=== PATIENT | male | born 1960 | race Hispanic/Latino ===

== ENCOUNTER 2017-02-22 15:29 | Inpatient (IN) | payer MEDICARE, MEDICAID ==
[2017-02-22 15:30] VITALS: BMI 24.1
--- NOTE | 2017-02-22 15:44 | C.PDOC ---
History Of Present Illness 56M presents via EMS w overdose. per ems initial call was for "chest pain" however the pt reports taking 8 xanax around 10am today. he admits that this was a suicide attempt. further hx if difficult due to mental status and speech delay. Time Seen by Provider: 02/22/17 15:41 Past Medical History Vital Signs: Last Vital Signs Temp 97.7 F 02/23/17 15:20 Pulse 97 H 02/23/17 15:20 Resp 20 02/23/17 15:20 BP 154/99 H 02/23/17 15:20 Pulse Ox 97 02/23/17 15:20 - Medical History PMH: Kidney Stones, Chronic Kidney Disease, Seizures Denies: HIV Surgical History: Appendectomy, Tonsillectomy - [facility] Procedures COMMUNICATIVE/COGNITIVE INTEGRATION SKILLS TREATMENT (06/16/16) EXCISION OF DUODENUM, ENDO, DIAGN (12/20/16) EXCISION OF LOWER ESOPHAGUS, ENDO, DIAGN (12/20/16) EXCISION OF STOMACH, ENDO, DIAGN (12/20/16) FLUOROSCOPY OF SUPERIOR VENA CAVA, GUIDANCE (12/20/16) GAIT TRAINING/AMBULAT TREATMENT USING ASSIST EQUIPMENT (11/10/16) HOME MANAGEMENT TREATMENT USING ASSIST EQUIPMENT (06/16/16) INSERTION OF INFUSION DEV INTO SUP VENA CAVA, PERC APPROACH (12/20/16) LINEAR REP LID LACER (05/07/15) MANUAL THERAPY TECHNIQUES TREATMENT OF MUSCULOSK LOW BACK/LE (06/16/16) THERAPEUTIC EXERCISE TREATMENT OF MUSCULOSK LOW BACK/LE (06/16/16) ULTRASONOGRAPHY OF SUPERIOR VENA CAVA, GUIDANCE (12/20/16) Family History: States: Unknown Family Hx - Social History Hx Alcohol Use: No Hx Substance Use: No - Immunization History Hx Tetanus Toxoid Vaccination: Yes (a few months ago) Review Of Systems Review Of Systems: ROS cannot be obtained secondary to pt's inabilty to answer questions. Physical Exam - Physical Exam Appears: Unkempt Skin: Diaphoretic Head: Atraumatic Eye(s): bilateral: PERRL Oral Mucosa: Moist Tongue: No Swelling Teeth: Caries Neck: Normal ROM, Supple Cardiovascular: Rhythm Regular Respiratory: No Decreased Breath Sounds, No Accessory Muscle Use, No Rales, No Rhonchi Gastrointestinal/Abdominal: Soft Extremity: Normal ROM Pulses: Left Radial: Normal, Right Radial: Normal Neurological/Psych: Other (lethargic, slurred speech, follows commands) ED Course And Treatment - Laboratory Results Result Diagrams: 02/23/17 08:37 02/23/17 08:37 Disposition - Disposition Disposition: HOSPITALIZED Disposition Time: 18:17 Condition: STABLE - Clinical Impression Clinical Impression: Benzodiazepine overdose, Suicide attempt
[2017-02-22] MEDS ORDERED: Sodium Chloride 0.9% 1,000 ML IV ONE (15:52)
--- NOTE | 2017-02-22 16:24 | RAD ---
HISTORY: Chest pain portable supine study 16:00 COMPARISON: No prior. FINDINGS: LUNGS: No active pulmonary disease. PLEURA: No significant pleural effusion identified, no pneumothorax apparent. CARDIOVASCULAR: No radiographic findings to suggest acute or significant cardiovascular disease. OSSEOUS STRUCTURES: No significant abnormalities. VISUALIZED UPPER ABDOMEN: Normal. OTHER FINDINGS: None. IMPRESSION: No active disease.
[2017-02-22 16:58] LABS: CHLORIDE 103 mmol/L (98-107)
[2017-02-22 16:59] LABS: POTASSIUM 3.9 mmol/L (3.6-5.2); SODIUM 139 mmol/L (132-148)
[2017-02-22 17:01] LABS: ALB/GLOB RATIO 1.2 (1.0-2.1); AST/SGOT 25 U/L (17-59); CARBON DIOXIDE 25 mmol/L (22-30); GFR AFRICAN-AMERICAN > 60; TOTAL PROTEIN 6.7 g/dL (6.3-8.3)
[2017-02-22 17:02] LABS: ALCOHOL SERUM 18 mg/dl (0-10); ALKALINE PHOSPHATASE 63 U/L (38-126); ALT/SGPT 17 U/L (21-72); BLOOD UREA NITROGEN 7 mg/dL (9-20); GLUCOSE,RANDOM 86 mg/dL (75-110)
[2017-02-22 17:05] LABS: BASO % 0.6 % (0.0-2.0); EOS % 0.9 % (0.0-4.0); HEMATOCRIT 39.1 % (35.0-51.0); LYMPH # 1.1 K/uL (1.0-4.3); MEAN CELL VOLUME 87.8 fL (80.0-94.0); MEAN CORPUSCULAR HEMOGLOBIN 28.5 pg (27.0-31.0); MEAN CORPUSCULAR HGB CONC 32.4 g/dL (33.0-37.0); MEAN PLATELET VOLUME 8.1 fL (7.2-11.7); MONO # 0.3 K/uL (0.0-0.8); WHITE BLOOD COUNT 3.9 K/uL (4.8-10.8)
[2017-02-22 17:37] LABS: RBC URINE 4 /hpf (0-3); URINE BACTERIA RARE (<OCC); URINE BILIRUBIN NEGATIVE (NEGATIVE); URINE BLOOD 1+ (NEGATIVE); URINE COLOR Yellow (YELLOW); URINE GLUCOSE (UA) NORMAL (Normal); URINE KETONE NEGATIVE (NEGATIVE); URINE LEUKOCYTE ESTERASE NEG Leu/uL (Negative); URINE PROTEIN NEGATIVE (NEGATIVE); URINE UROBILINOGEN NORMAL mg/dL (0.2-1.0); WBC URINE < 1 /hpf (0-5)
--- NOTE | 2017-02-22 19:32 | CP.PCM.HP ---
Addendum entered and electronically signed by Chadwick Thomson DO 02/25/17 06:53: Addendum to overdose plan: Add toxic encephalopathy diagnosis in setting of AMS secondary to benzo, opiate , alcohol use Original Note: <AmeenaNhan - Last Filed: 02/22/17 21:36> History of Present Illness - History of Present Illness History of Present Illness: CC: Overdose and Suicide attempt 56M with PMH significant for cerebral palsy and seizures who was brought in by EMS for overdose and Suicide attempt. As per EMS, the initial call was for chest pain. When they arrived, patient was altered. EMS also reported that he took 8 xanax around 10am today and that patient admitted that this was a suicide attempt. ROS unobtainable due to mental status. PMH: cerebral palsy, seizures, GERD, polysubstance abuse Meds: As per EMR Allergy: NKDA PSH: appendectomy Hosp: [facility] [place] in last year for dysphagia and drug abuse Social: As per EMR, lives with nephew, uses cane/walker, history of drug/ETOH abuse Present on Admission - Present on Admission Any Indicators Present on Admission: No History of DVT/PE: No History of Uncontrolled Diabetes: No Urinary Catheter: No Decubitus Ulcer Present: No Review of Systems - Review of Systems Systems not reviewed;Unavailable: Altered Mental Status Past Patient History - Infectious Disease Hx of Infectious Diseases: None - Past Medical History & Family History Past Medical History?: Yes - Past Social History Smoking Status: Former Smoker - CARDIAC Hx Cardiac Disorders: No - PULMONARY Hx Respiratory Disorders: No - NEUROLOGICAL Hx Seizures: Yes - HEENT Hx HEENT Problems: No - RENAL Hx Chronic Kidney Disease: Yes Hx Kidney Stones: Yes - ENDOCRINE/METABOLIC Hx Endocrine Disorders: No - HEMATOLOGICAL/ONCOLOGICAL Hx Human Immunodeficiency Virus (HIV): No - INTEGUMENTARY Hx Dermatological Problems: No - MUSCULOSKELETAL/RHEUMATOLOGICAL Hx Falls: Yes Other/Comment: cerebral palsy - GASTROINTESTINAL Hx Gastrointestinal Disorders: No - GENITOURINARY/GYNECOLOGICAL Hx Genitourinary Disorders: No - PSYCHIATRIC Hx Substance Use: No - SURGICAL HISTORY Hx Appendectomy: Yes Hx Tonsillectomy: Yes - ANESTHESIA Hx Anesthesia: Yes Hx Anesthesia Reactions: No Hx Malignant Hyperthermia: No Meds Allergies/Adverse Reactions: Allergies Allergy/AdvReac Type Severity Reaction Status Date / Time No Known Allergies Allergy Verified 02/22/17 15:46 Physical Exam - Constitutional Appears: Toxic, Confused, Chronically Ill - Head Exam Head Exam: ATRAUMATIC, NORMOCEPHALIC - Eye Exam Eye Exam: EOMI Pupil Exam: PERRL Additional comments: arcus senalis - ENT Exam ENT Exam: Mucous Membranes Dry - Neck Exam Neck exam: Positive for: Normal Inspection - Respiratory Exam Respiratory Exam: Clear to Auscultation Bilateral, NORMAL BREATHING PATTERN. absent: Accessory Muscle Use, Respiratory Distress - Cardiovascular Exam Cardiovascular Exam: REGULAR RHYTHM, +S1, +S2 - GI/Abdominal Exam GI & Abdominal Exam: Normal Bowel Sounds, Soft. absent: Distended, Firm, Rigid - Extremities Exam Extremities exam: Positive for: pedal pulses present. Negative for: pedal edema Additional comments: contractures on upper and lower extremities bilaterally fluctuant mass on dorsum of left hand - Back Exam Back exam: absent: CVA tenderness (L), CVA tenderness (R) - Neurological Exam Neurological exam: Altered - Psychiatric Exam Psychiatric exam: Flat Affect - Skin Skin Exam: Dry, Warm Additional comments: bilateral pigmentation discoloration on knees Results - Vital Signs Recent Vital Signs: Last Vital Signs Temp 97.3 F L 02/22/17 19:10 Pulse 64 02/22/17 19:10 Resp 16 02/22/17 19:10 BP 121/88 02/22/17 19:10 Pulse Ox 100 02/22/17 19:10 - Labs Result Diagrams: 02/22/17 16:41 02/22/17 16:41 Assessment & Plan - Assessment and Plan (Free Text) Plan: 1. Overdose Telemetry D5 1/2 NS with 20 mEq K+ 125 cc/hr Romazicon 0.2 mg IVP ONCE Narcan 0.4 IVP ONCE Thiamine 100 mg IVPB daily Psych consult, Dr. Smith, help appreciated UDS positive for benzo, opiates, Alcohol Seizure precautions Aspiration precautions Fall risk protocol 2. Suicide attempt Psych consult, Dr. Smith, help appreciated 1:1 observation 3. Seizure disorder Phenytoin 100 mg IVP Q8H Seizure precautions 4. Prophylactic measures Protonix 40 mg IVP daily Zofran 4 mg IVP Q6H PRN <Reji Anthony P - Last Filed: 02/26/17 23:31> Results - Vital Signs Recent Vital Signs: Last Vital Signs Temp 97.2 F L 02/26/17 15:12 Pulse 109 H 02/26/17 15:12 Resp 20 02/26/17 15:12 BP 144/95 H 02/26/17 15:12 Pulse Ox 97 02/26/17 15:12 - Labs Result Diagrams: 02/26/17 07:11 02/26/17 07:11 Labs: Laboratory Results - last 24 hr 02/26/17 02/26/17 02/26/17 06:33 07:11 07:11 WBC 7.6 RBC 5.39 Hgb 15.7 Hct 47.0 MCV 87.3 MCH 29.2 MCHC 33.5 RDW 14.2 Plt Count 301 MPV 8.0 Neut % (Auto) 70.8 Lymph % (Auto) 21.5 [place] % (Auto) 6.5 Eos % (Auto) 0.5 Baso % (Auto) 0.7 Neut # 5.4 Lymph # 1.6 [place] # 0.5 Eos # 0.0 Baso # 0.1 Sodium 139 Potassium 3.7 Chloride 102 Carbon Dioxide 23 Anion Gap 17 BUN 12 Creatinine 0.6 L Est GFR ( Amer) > 60 Est GFR (Non-Af Amer) > 60 POC Glucose (mg/dL) 94 Random Glucose 112 H Calcium 8.9 Phosphorus 4.3 Magnesium 2.4 H Total Bilirubin 1.2 AST 21 ALT 15 L D Alkaline Phosphatase 91 Total Protein 7.7 Albumin 4.3 Globulin 3.4 Albumin/Globulin Ratio 1.3 02/26/17 11:38 WBC RBC Hgb Hct MCV MCH MCHC RDW Plt Count MPV Neut % (Auto) Lymph % (Auto) [place] % (Auto) Eos % (Auto) Baso % (Auto) Neut # Lymph # [place] # Eos # Baso # Sodium Potassium Chloride Carbon Dioxide Anion Gap BUN Creatinine Est GFR ( Amer) Est GFR (Non-Af Amer) POC Glucose (mg/dL) 119 H Random Glucose Calcium Phosphorus Magnesium Total Bilirubin AST ALT Alkaline Phosphatase Total Protein Albumin Globulin Albumin/Globulin Ratio Attending/Attestation - Attestation I have personally seen and examined this patient.: Yes I have fully participated in the care of the patient.: Yes I have reviewed all pertinent clinical information: Yes
[2017-02-22] MEDS ORDERED: Naloxone 0.4 mg/ml Inj (Adult) IVP ONE (20:48)
[2017-02-22] MEDS ORDERED: Flumazenil 0.1 mg/ml Inj (5ml) IVP STA (20:49)
[2017-02-22 21:11] LABS: ABG ALLEN TEST N; ARTERIAL BLOOD HGB O2 SAT 95.6 % (95.0-98.0); DRAW SITE RB; HHB 1.2 % (0.0-5.0); METHEMOGLOBIN 1.2 % (0.0-3.0)
[2017-02-22] MEDS ORDERED: Thiamine 100 mg/ml Inj IV ONE (21:15)
[2017-02-22] MEDS: Potassium Ch 20mEq in D5-1/2NS 1,000 ML IV SCH (22:59)
[2017-02-22] MEDS: Phenytoin 100 mg/2 ml Inj IVP SCH (23:15)
[2017-02-23] MEDS: Potassium Ch 20mEq in D5-1/2NS 1,000 ML IV SCH ×3 (05:30→19:10)
[2017-02-23] MEDS: Phenytoin 100 mg/2 ml Inj IVP SCH ×3 (06:19→21:43)
--- NOTE | 2017-02-23 07:47 | CT ---
PROCEDURE: CT HEAD WITHOUT CONTRAST. HISTORY: Altered mental status COMPARISON: None available. TECHNIQUE: Axial computed tomography images were obtained through the head/brain without intravenous contrast. Radiation dose: Total exam DLP = 885 mGy-cm. This CT exam was performed using one or more of the following dose reduction techniques: Automated exposure control, adjustment of the mA and/or kV according to patient size, and/or use of iterative reconstruction technique. FINDINGS: HEMORRHAGE: No intracranial hemorrhage. BRAIN: Mild diffuse cerebral atrophy present, consistent with the patient's age. Scattered focal lucencies in the subcortical and periventricular white matter suggestive for chronic microvascular ischemic change. VENTRICLES: Unremarkable. No hydrocephalus. CALVARIUM: Unremarkable. PARANASAL SINUSES: Unremarkable as visualized. No significant inflammatory changes. MASTOID AIR CELLS: Unremarkable as visualized. No inflammatory changes. OTHER FINDINGS: Small hypoechoic/cystic mass seen within the anterior left hemimaxilla on series 2, image 4 measuring 2.2 x 2.2 centimeters. This is of uncertain clinical etiology. Clinical correlation and or correlation with facial CT may be helpful if clinically indicated. IMPRESSION: Age appropriate volume loss. Chronic microvascular ischemic change. Rounded 2.2 centimeter cystic/ low-attenuation lesion in the anterior left hemimaxilla. This is of uncertain clinical etiology and may represent a periodontal cyst versus periodontal abscess versus additional etiology. Correlation with facial bone CT may be helpful if clinically indicated. If focal neurologic deficit persists, consider MRI. These findings were preliminarily reported at 7:12 p.m. on 02/22/[address] Pradip De Oliveira from [email or web address].
[2017-02-23 08:53] LABS: INR 1.1
[2017-02-23 08:59] LABS: CHLORIDE 105 mmol/L (98-107); SODIUM 139 mmol/L (132-148)
[2017-02-23 09:00] LABS: POTASSIUM 3.7 mmol/L (3.6-5.2)
[2017-02-23 09:02] LABS: ALB/GLOB RATIO 1.3 (1.0-2.1); ALKALINE PHOSPHATASE 76 U/L (38-126); AST/SGOT 20 U/L (17-59); BILIRUBIN,TOTAL 1.5 mg/dL (0.2-1.3); BLOOD UREA NITROGEN 5 mg/dL (9-20); CARBON DIOXIDE 25 mmol/L (22-30); GFR AFRICAN-AMERICAN > 60; TOTAL PROTEIN 6.7 g/dL (6.3-8.3)
[2017-02-23 09:03] LABS: ALT/SGPT 15 U/L (21-72); CALCIUM 8.6 mg/dl (8.6-10.4); GLUCOSE,RANDOM 125 mg/dL (75-110)
[2017-02-23 09:04] LABS: BASO % 0.1 % (0.0-2.0); EOS % 0.1 % (0.0-4.0); HEMATOCRIT 40.5 % (35.0-51.0); LYMPH # 0.9 K/uL (1.0-4.3); LYMPH % 10.6 % (20.0-40.0); MEAN CELL VOLUME 87.1 fL (80.0-94.0); MEAN CORPUSCULAR HEMOGLOBIN 29.8 pg (27.0-31.0); MEAN CORPUSCULAR HGB CONC 34.2 g/dL (33.0-37.0); MEAN PLATELET VOLUME 8.1 fL (7.2-11.7); MONO # 0.3 K/uL (0.0-0.8); MONO % 4.2 % (0.0-10.0); RED CELL DISTRIBUTION WIDTH 14.3 % (11.5-14.5)
[2017-02-23 09:14] LABS: WHITE BLOOD COUNT 8.2 K/uL (4.8-10.8)
[2017-02-23] MEDS: Thiamine 100 mg/ml Inj IV SCH (10:10)
--- NOTE | 2017-02-23 11:57 | PCM.PSYCH ---
Initial Psychiatric Evaluation - Initial Psychiatric Evaluation Type of Admission: Voluntary Legal Status: Capacity History of Present Illness and Precipitating Events: Came to evaluate the patient. Patient remained very drowsy and sedated. Will come tomorrow to reevaluate him. Current Medications: Active Medications Generic Name Dose Route Start Last Admin Trade Name Freq PRN Reason Stop Dose Admin Potassium Chloride/Dextrose/Sod Cl 1,000 mls @ 125 mls/hr 02/22/17 21:00 05:30 Potassium Chl 20 Meq In D5-1/2ns IV Not Given .Q8H ANDI Ondansetron HCl 4 mg 02/22/17 22:00 Zofran Inj IVP Q6 PRN Nausea/Vomiting Pantoprazole Sodium 40 mg 02/23/17 10:00 02/23/17 10:08 Protonix Inj IVP 40 mg DAILY ANDI Administration Phenytoin 100 mg 02/22/17 21:30 02/23/17 06:19 Dilantin IVP 100 mg Q8H ANDI Administration Thiamine HCl 100 mg 02/23/17 10:00 02/23/17 10:10 Vitamin B1 Inj IV 100 mg DAILY ANDI Administration Past Psychiatric History - Past Psychiatric History Pertinent Medical Hx (Current Medical&Sleep Prob, Allergies): Allergies Allergy/AdvReac Type Severity Reaction Status Date / Time No Known Allergies Allergy Verified 02/22/17 15:46 Alprazolam [Xanax] 0.25 mg PO BID 12/19/16 Gabapentin [Neurontin] 100 mg PO TID 12/19/16 Phenytoin, Extended [Dilantin] 100 mg PO TID 12/19/16 Pantoprazole [Protonix] 40 mg PO DAILY #30 ect 12/27/16
--- NOTE | 2017-02-23 12:44 | CP.PCM.PN ---
<Kannan Crane - Last Filed: 02/23/17 12:46> Subjective - Date & Time of Evaluation Date of Evaluation: 02/23/17 Time of Evaluation: 12:45 - Subjective Subjective: Med progress note. Attending: Dr. Mari Pt seen and examined at bedside. No acute distress. No events overnight. Pt still somewhat obtunded. Will increase fluids, ROS unable to be obtained. Psych workup in progress. Objective - Vital Signs/Intake and Output Vital Signs (last 24 hours): Temp Pulse Resp BP Pulse Ox 98.2 F 90 20 151/80 H 96 02/23/17 07:30 02/23/17 07:30 02/23/17 07:30 02/23/17 07:30 02/23/17 07:30 Intake and Output: 02/23/17 02/23/17 06:59 18:59 Intake Total 1000 1000 Output Total 350 300 Balance 650 700 - Medications Medications: Current Medications Ondansetron HCl (Zofran Inj) 4 mg IVP Q6 PRN PRN Reason: Nausea/Vomiting Pantoprazole Sodium (Protonix Inj) 40 mg IVP DAILY [facility] Last Admin: 02/23/17 10:08 Dose: 40 mg Phenytoin (Dilantin) 100 mg IVP Q8H [facility] Last Admin: 02/23/17 06:19 Dose: 100 mg Thiamine HCl (Vitamin B1 Inj) 100 mg IV DAILY [facility] Last Admin: 02/23/17 10:10 Dose: 100 mg - Labs Labs: 02/23/17 08:37 02/23/17 08:37 PT 12.6 SECONDS (9.7-12.2) H 02/23/17 08:37 INR 1.1 02/23/17 08:37 APTT 29 SECONDS (21-34) 02/23/17 08:37 - Constitutional Appears: Non-toxic, No Acute Distress - Head Exam Head Exam: ATRAUMATIC, NORMAL INSPECTION, NORMOCEPHALIC Additional comments: Obtunded - Eye Exam Eye Exam: EOMI - ENT Exam ENT Exam: Mucous Membranes Moist - Neck Exam Neck Exam: Full ROM, Normal Inspection - Respiratory Exam Respiratory Exam: NORMAL BREATHING PATTERN. absent: Respiratory Distress - Cardiovascular Exam Cardiovascular Exam: +S1, +S2 - GI/Abdominal Exam GI & Abdominal Exam: Soft, Normal Bowel Sounds. absent: Tenderness - Extremities Exam Extremities Exam: Full ROM, Normal Inspection - Back Exam Back Exam: NORMAL INSPECTION - Neurological Exam Neurological Exam: Altered - Psychiatric Exam Additional comments: Unable to assess - Skin Skin Exam: Dry, Intact, Normal Color, Warm Assessment and Plan - Assessment and Plan (Free Text) Assessment: This is a 56 yo male with past medical hx of drug abuse, cerebral palsy, seizures, GERD presenting with 1. Overdose Telemetry D5 1/2 NS with 20 mEq K+ 150 cc/hr flumazenil 0.2 mg IVP ONCE Narcan 0.4 IVP ONCE Thiamine 100 mg IVPB daily Psych consult, Dr. Smith, help appreciated UDS positive for benzo, opiates, Alcohol Seizure precautions Aspiration precautions Fall risk protocol 2. Suicide attempt Psych consult, Dr. Smith, help appreciated 1:1 observation 3. Seizure disorder Phenytoin 100 mg IVP Q8H Seizure precautions 4. Prophylactic measures Protonix 40 mg IVP daily Zofran 4 mg IVP Q6H PRN discussed with Dr. Mari <Steven Mari - Last Filed: 02/23/17 16:19> Objective - Vital Signs/Intake and Output Vital Signs (last 24 hours): Temp Pulse Resp BP Pulse Ox 97.7 F 97 H 20 154/99 H 97 02/23/17 15:20 02/23/17 15:20 02/23/17 15:20 02/23/17 15:20 02/23/17 15:20 Intake and Output: 02/23/17 02/23/17 06:59 18:59 Intake Total 1000 1000 Output Total 350 300 Balance 650 700 - Medications Medications: Current Medications Potassium Chloride/Dextrose/Sod Cl (Potassium Chl 20 Meq In D5-1/2ns) 1,000 mls @ 150 mls/hr IV .Q6H40M [facility] Last Admin: 02/23/17 14:08 Dose: 150 mls/hr Ondansetron HCl (Zofran Inj) 4 mg IVP Q6 PRN PRN Reason: Nausea/Vomiting Pantoprazole Sodium (Protonix Inj) 40 mg IVP DAILY [facility] Last Admin: 02/23/17 10:08 Dose: 40 mg Phenytoin (Dilantin) 100 mg IVP Q8H [facility] Last Admin: 02/23/17 14:33 Dose: 100 mg Thiamine HCl (Vitamin B1 Inj) 100 mg IV DAILY [facility] Last Admin: 02/23/17 10:10 Dose: 100 mg - Labs Labs: 02/23/17 08:37 02/23/17 08:37 PT 12.6 SECONDS (9.7-12.2) H 02/23/17 08:37 INR 1.1 02/23/17 08:37 APTT 29 SECONDS (21-34) 02/23/17 08:37 Attending/Attestation - Attestation I have personally seen and examined this patient.: Yes I have fully participated in the care of the patient.: Yes I have reviewed all pertinent clinical information, including history, physical exam and plan: Yes Notes (Text): 02/23/17 16:18 Medical attending: Patient was seen and examined by me, agrees the above note by medical record librarians teacher. The patient was awake, and he did look to me when calling his name. His speech is mostly mumbled and difficult to understand. He still looks dry on exam and so at this time regarding continue with intravenous fluids. If there is no noticeable improvement in his mental status were can consider getting further imaging of the brain. He's urine drug screen came back positive for several things as noted above Thank you very much, Steven Mari
--- NOTE | 2017-02-23 17:18 | CT ---
Indication: Pain Noncontrast CT of the left hip Comparison: None available Technique: Noncontrast axial images of the left hip. Sagittal coronal reformatted images were generated and reviewed. This CT exam was performed using 1 or more of the falling dose reduction techniques: Automated exposure control, adjustment of the MAA and/or kV according to patient size, and/or use of iterative reconstruction technique. Total exam DLP: 237.36 Findings: No acute fracture. No dislocation. Well corticated ossific density noted superior to the left humeral head likely related to the acetabulum and degenerative change. The left sacroiliac joint appears unremarkable. Degenerative changes involving the limited visualization of the lower lumbar spine. 7 mm anterolisthesis of L5 on S1. Bilateral L5 spondylolysis. Soft tissues appear unremarkable. No evidence of radiopaque foreign body. Limited visualization of the intrapelvic structures: Cooney catheter. Air within the urinary bladder likely related to instrumentation. Impression: No acute hip fracture or dislocation identified. Degenerative changes. Bilateral L5 spondylolysis. Cooney catheter within the urinary bladder which contains air, likely secondary to instrumentation.
[2017-02-24] MEDS: Potassium Ch 20mEq in D5-1/2NS 1,000 ML IV SCH ×3 (02:33→10:16)
[2017-02-24] MEDS: Phenytoin 100 mg/2 ml Inj IVP SCH (04:48)
[2017-02-24] MEDS: Thiamine 100 mg/ml Inj IV SCH (10:23)
--- NOTE | 2017-02-24 11:30 | CP.PCM.PN ---
Subjective - Date & Time of Evaluation Date of Evaluation: 02/24/17 Time of Evaluation: 11:30 - Subjective Subjective: Med progress note. Attending: Dr. Mari Pt seen and examined at bedside. No acute distress. No events overnight. Pt pending swallow eval and psych eval. May need [place] be [place] [facility] [place] Denies fevers, chills, chest pain, sob. Objective - Vital Signs/Intake and Output Vital Signs (last 24 hours): Temp Pulse Resp BP Pulse Ox 97.7 F 89 20 155/100 H 99 02/24/17 08:19 02/24/17 08:19 02/24/17 08:19 02/24/17 08:19 02/24/17 08:19 - Medications Medications: Current Medications Clonidine HCl (Catapres) 0.1 mg PO Q8H [facility] Last Admin: 02/24/17 10:31 Dose: 0.1 mg Potassium Chloride/Dextrose/Sod Cl (Potassium Chl 20 Meq In D5-1/2ns) 1,000 mls @ 150 mls/hr IV .Q6H40M [facility] Last Admin: 02/24/17 10:16 Dose: 150 mls/hr Phenytoin 100 mg/ Sodium (Chloride) 52 mls @ 104 mls/hr IVPB Q8 ANDI Ondansetron HCl (Zofran Inj) 4 mg IVP Q6 PRN PRN Reason: Nausea/Vomiting Pantoprazole Sodium (Protonix Inj) 40 mg IVP DAILY [facility] Last Admin: 02/24/17 10:18 Dose: 40 mg Thiamine HCl (Vitamin B1 Inj) 100 mg IV DAILY [facility] Last Admin: 02/24/17 10:23 Dose: 100 mg - Labs Labs: PT 12.6 SECONDS (9.7-12.2) H 02/23/17 08:37 INR 1.1 02/23/17 08:37 APTT 29 SECONDS (21-34) 02/23/17 08:37 - Constitutional Appears: Non-toxic, No Acute Distress, Unkempt - Head Exam Head Exam: ATRAUMATIC, NORMAL INSPECTION, NORMOCEPHALIC - Eye Exam Eye Exam: EOMI - ENT Exam ENT Exam: Mucous Membranes Dry - Neck Exam Neck Exam: Full ROM, Normal Inspection - Respiratory Exam Respiratory Exam: NORMAL BREATHING PATTERN. absent: Respiratory Distress - Cardiovascular Exam Cardiovascular Exam: REGULAR RHYTHM, +S1, +S2 - GI/Abdominal Exam GI & Abdominal Exam: Soft, Normal Bowel Sounds. absent: Tenderness - Extremities Exam Extremities Exam: Full ROM, Normal Inspection - Neurological Exam Neurological Exam: Alert, Awake - Psychiatric Exam Psychiatric exam: Depressed - Skin Skin Exam: Dry, Intact, Normal Color, Warm Assessment and Plan - Assessment and Plan (Free Text) Assessment: This is a 56 yo male with past medical hx of drug abuse, cerebral palsy, seizures, GERD presenting with 1. Overdose Telemetry D5 1/2 NS with 20 mEq K+ 150 cc/hr flumazenil 0.2 mg IVP ONCE Narcan 0.4 IVP ONCE Thiamine 100 mg IVPB daily Psych consult, Dr. Smith, help appreciated UDS positive for benzo, opiates, Alcohol Seizure precautions Aspiration precautions Fall risk protocol added clonidine .1 mg q 8 pending possible transfer to [facility] 2. Suicide attempt Psych consult, Dr. Smith, help appreciated 1:1 observation 3. Seizure disorder Phenytoin 100 mg IVP Q8H Seizure precautions 4. Prophylactic measures Protonix 40 mg IVP daily Zofran 4 mg IVP Q6H PRN discussed with Dr. Mari
[2017-02-24 12:12] LABS: BASO % 0.4 % (0.0-2.0); HEMATOCRIT 40.8 % (35.0-51.0); LYMPH % 14.5 % (20.0-40.0); MEAN CORPUSCULAR HEMOGLOBIN 29.3 pg (27.0-31.0); MEAN CORPUSCULAR HGB CONC 33.7 g/dL (33.0-37.0); MEAN PLATELET VOLUME 8.1 fL (7.2-11.7); MONO # 0.3 K/uL (0.0-0.8); MONO % 3.9 % (0.0-10.0); RED CELL DISTRIBUTION WIDTH 14.4 % (11.5-14.5); WHITE BLOOD COUNT 7.1 K/uL (4.8-10.8)
[2017-02-24 12:19] LABS: CHLORIDE 105 mmol/L (98-107); SODIUM 139 mmol/L (132-148)
[2017-02-24 12:20] LABS: POTASSIUM 3.7 mmol/L (3.6-5.2)
[2017-02-24 12:22] LABS: ALB/GLOB RATIO 1.3 (1.0-2.1); ALKALINE PHOSPHATASE 88 U/L (38-126); ALT/SGPT 15 U/L (21-72); AST/SGOT 16 U/L (17-59); BILIRUBIN,TOTAL 1.3 mg/dL (0.2-1.3); BLOOD UREA NITROGEN 3 mg/dL (9-20); CARBON DIOXIDE 22 mmol/L (22-30); GFR AFRICAN-AMERICAN > 60; GLUCOSE,RANDOM 133 mg/dL (75-110); TOTAL PROTEIN 6.9 g/dL (6.3-8.3)
[2017-02-24 12:23] LABS: CALCIUM 8.7 mg/dl (8.6-10.4)
--- NOTE | 2017-02-24 14:29 | PCM.PSYCH ---
Initial Psychiatric Evaluation - Initial Psychiatric Evaluation Type of Admission: Voluntary Legal Status: Capacity Chief Complaint (in patient's own words): 'I tried to attempt suicide' History of Present Illness and Precipitating Events: Patient is a 56 years old HM, who lives alone, with PMH significant for cerebral palsy and seizures who was brought in by EMS for overdose and Suicide attempt. As per EMS, the initial call was for chest pain. When they arrived, patient was altered. EMS also reported that he took 8 Xanax and that patient admitted that this was a suicide attempt. Patient was seen and evaluated today. Today patient appeared alert awake and oriented to times place and person. Patient reports that his mother passed was 7 months ago. Since then he is becoming increasingly depressed. Day before admission he became increasingly depressed and developed suicidal ideation and he attempted to overdose on Xanax. Patient reports depressed mood, and reports of feelings of hopelessness or helplessness. He says that, he has family and no friends, & there is no use of living like this. He also reports of anhedonia , poor appetite and insomnia. He denies any auditory or visual hallucinations and denies any manic or psychotic symptoms. Patient denies any history of drinking or any substance abuse. PMH Cerebral palsy Seizures Current Medications: Active Medications Generic Name Dose Route Start Last Admin Trade Name Freq PRN Reason Stop Dose Admin Clonidine HCl 0.1 mg 02/23/17 19:30 02/24/17 10:31 Catapres PO 0.1 mg Q8H ANDI Administration Potassium Chloride/Dextrose/Sod Cl 1,000 mls @ 150 mls/hr 02/23/17 12:41 10/12 10:16 Potassium Chl 20 Meq In D5-1/2ns IV 150 mls/hr .Q6H40M ANDI Administration Phenytoin 100 mg/ Sodium 52 mls @ 104 mls/hr 02/24/17 14:00 02/24/17 13:23 Chloride IVPB 104 mls/hr Q8 ANDI Administration Ondansetron HCl 4 mg 02/22/17 22:00 Zofran Inj IVP Q6 PRN Nausea/Vomiting Pantoprazole Sodium 40 mg 02/23/17 10:00 02/24/17 10:18 Protonix Inj IVP 40 mg DAILY ANDI Administration Thiamine HCl 100 mg 02/23/17 10:00 02/24/17 10:23 Vitamin B1 Inj IV 100 mg DAILY ANDI Administration Past Psychiatric History - Past Psychiatric History Previous Treatment History: None Pertinent Medical Hx (Current Medical&Sleep Prob, Allergies): Allergies Allergy/AdvReac Type Severity Reaction Status Date / Time No Known Allergies Allergy Verified 02/22/17 15:46 Alprazolam [Xanax] 0.25 mg PO BID 12/19/16 Gabapentin [Neurontin] 100 mg PO TID 12/19/16 Phenytoin, Extended [Dilantin] 100 mg PO TID 12/19/16 Pantoprazole [Protonix] 40 mg PO DAILY #30 ect 12/27/16 Review of Systems - Review of Systems All systems: reviewed and no additional remarkable complaints except - Psychiatric Psychiatric: Anxiety, Depression, Hopelessness, Irritability, Suicidal Ideation Mental Status Examination - Personal Presentation Personal Presentation: Looks older than stated age - Affect Affect: Constricted, Depressed - Motor Activity Motor Activity: Calm - Reliability in Providing Information Reliability in Providing Information: Fair - Speech Speech: Incoherent - Mood Mood: Anxious - Formal Thought Process Formal Thought Process: No Impairment - Obsessions/Compulsions Obsessions: No Compulsions: No - Cognitive Functions Orientation: Person, Place, Situation, Time Sensorium: Alert Attention/Concentration: Attentive Abstract Thinking: [place] Estimate of Intelligence: Below average Judgement: Imparied, as evidence by: Poor judgement, Imparied, as evidence by: Lack of insight into illness - Risk Risk: Suicidal, Diminished functioning - Strength & Assets Inventory Strength & Assets Inventory: Life experience - Limitations Limitations: Living alone DSM 5 DX - DSM 5 DSM 5 Diagnosis: major 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 He needs an involuntary psychiatric hospitalization. - Smoking Cessation Smoking Cessation Initiated: No
[2017-02-25 07:19] LABS: BASO % 0.6 % (0.0-2.0); EOS % 0.3 % (0.0-4.0); HEMATOCRIT 43.6 % (35.0-51.0); LYMPH # 1.8 K/uL (1.0-4.3); LYMPH % 24.4 % (20.0-40.0); MEAN CELL VOLUME 87.2 fL (80.0-94.0); MEAN CORPUSCULAR HEMOGLOBIN 29.2 pg (27.0-31.0); MEAN CORPUSCULAR HGB CONC 33.4 g/dL (33.0-37.0); MEAN PLATELET VOLUME 8.1 fL (7.2-11.7); MONO # 0.4 K/uL (0.0-0.8); MONO % 5.2 % (0.0-10.0); RED CELL DISTRIBUTION WIDTH 14.2 % (11.5-14.5); WHITE BLOOD COUNT 7.4 K/uL (4.8-10.8)
[2017-02-25 07:37] LABS: CHLORIDE 102 mmol/L (98-107); POTASSIUM 4.8 mmol/L (3.6-5.2); SODIUM 140 mmol/L (132-148)
[2017-02-25 07:39] LABS: ALB/GLOB RATIO 1.3 (1.0-2.1); ALKALINE PHOSPHATASE 87 U/L (38-126); AST/SGOT 22 U/L (17-59); BILIRUBIN,TOTAL 1.2 mg/dL (0.2-1.3); CARBON DIOXIDE 26 mmol/L (22-30); GFR AFRICAN-AMERICAN > 60; TOTAL PROTEIN 7.6 g/dL (6.3-8.3)
[2017-02-25 07:40] LABS: ALT/SGPT 11 U/L (21-72); BLOOD UREA NITROGEN 9 mg/dL (9-20); CALCIUM 9.5 mg/dl (8.6-10.4); GLUCOSE,RANDOM 108 mg/dL (75-110); MAGNESIUM 2.1 mg/dL (1.6-2.3)
--- NOTE | 2017-02-25 11:30 | CP.PCM.PN ---
Subjective - Date & Time of Evaluation Date of Evaluation: 02/25/17 Time of Evaluation: 11:30 - Subjective Subjective: Med progress note. Attending: Dr. Mari Pt seen and examined at bedside. No acute distress. Pt having some diarrhea, non bloody. Concern is for suicide and pt to be transferred involuntary to [facility]. Objective - Vital Signs/Intake and Output Vital Signs (last 24 hours): Temp Pulse Resp BP Pulse Ox 98.0 F 82 20 149/94 H 99 02/25/17 08:35 02/25/17 08:35 02/25/17 08:35 02/25/17 08:35 02/25/17 08:35 Intake and Output: 02/25/17 02/25/17 06:59 18:59 Intake Total 840 Output Total 575 Balance 265 - Medications Medications: Current Medications Clonidine HCl (Catapres) 0.1 mg PO Q8H [facility] Last Admin: 02/25/17 04:30 Dose: Not Given Potassium Chloride/Dextrose/Sod Cl (Potassium Chl 20 Meq In D5-1/2ns) 1,000 mls @ 150 mls/hr IV .Q6H40M [facility] Last Admin: 02/24/17 10:16 Dose: 150 mls/hr Ondansetron HCl (Zofran Inj) 4 mg IVP Q6 PRN PRN Reason: Nausea/Vomiting Pantoprazole Sodium (Protonix Ec Tab) 40 mg PO DAILY [facility] Phenytoin Sodium (Dilantin) 100 mg PO Q8H [facility] Last Admin: 02/25/17 06:37 Dose: 100 mg Pneumococcal Polyvalent Vaccine (Pneumovax 23 Vaccine) 0.5 ml IM .ONCE ONE Stop: 02/26/17 10:01 Sertraline HCl (Zoloft) 50 mg PO DAILY [facility] Last Admin: 02/25/17 09:45 Dose: 50 mg Thiamine HCl (Vitamin B1 Tab) 100 mg PO DAILY [facility] Trazodone HCl (Desyrel) 50 mg PO HS [facility] Last Admin: 02/24/17 22:16 Dose: 50 mg - Labs Labs: 02/25/17 07:08 02/25/17 07:08 PT 12.6 SECONDS (9.7-12.2) H 02/23/17 08:37 INR 1.1 02/23/17 08:37 APTT 29 SECONDS (21-34) 02/23/17 08:37 - Constitutional Appears: Non-toxic, No Acute Distress - Head Exam Head Exam: ATRAUMATIC, NORMAL INSPECTION, NORMOCEPHALIC - Eye Exam Eye Exam: EOMI - ENT Exam ENT Exam: Mucous Membranes Dry - Neck Exam Neck Exam: Full ROM, Normal Inspection - Respiratory Exam Respiratory Exam: NORMAL BREATHING PATTERN. absent: Respiratory Distress - Cardiovascular Exam Cardiovascular Exam: +S1, +S2 - GI/Abdominal Exam GI & Abdominal Exam: Soft, Normal Bowel Sounds. absent: Tenderness - Back Exam Back Exam: NORMAL INSPECTION - Neurological Exam Neurological Exam: Alert, Awake, Oriented x3 - Psychiatric Exam Psychiatric exam: Flat Affect - Skin Skin Exam: Dry, Intact, Normal Color, Warm Assessment and Plan - Assessment and Plan (Free Text) Assessment: This is a 56 yo male with past medical hx of drug abuse, cerebral palsy, seizures, GERD presenting with 1. Overdose Telemetry D5 1/ NS with 20 mEq K+ 150 cc/hr>>> right now waiting on vascular access flumazenil 0.2 mg IVP ONCE Narcan 0.4 IVP ONCE Thiamine 100 mg PO daily Psych consult, Dr. Smith, help appreciated UDS positive for benzo, opiates, Alcohol Seizure precautions Aspiration precautions Fall risk protocol added clonidine .1 mg q 8 pending possible transfer to [facility] for suicide ideation 2. Suicide attempt Psych consult, Dr. Smiht, help appreciated 1:1 observation 3. Seizure disorder Phenytoin 100 mg PO Q8H Seizure precautions 4. Prophylactic measures Protonix 40 mg PO daily Zofran 4 mg IVP Q6H PRN>> will change to PO discussed with Dr. Mari
[2017-02-25] MEDS: Pantoprazole 40 mg EC Tab PO SCH (12:26)
--- NOTE | 2017-02-26 01:47 | CP.PCM.PN ---
<Lourdes Vasquez - Last Filed: 02/26/17 01:43> Subjective - Date & Time of Evaluation Date of Evaluation: 02/26/17 Time of Evaluation: 01:00 - Subjective Subjective: Pt seen and examined at bedside. No acute distress. Pt having soft stool. Concern is for suicide and pt to be transferred involuntary to [facility]. Per nursing the family does not want the patient [facility] rather they would like him to go to detox. They would like to talk to case management. Objective - Vital Signs/Intake and Output Vital Signs (last 24 hours): Temp Pulse Resp BP Pulse Ox 97.6 F 88 20 149/90 95 02/25/17 23:24 02/25/17 23:24 02/25/17 23:24 02/25/17 23:24 02/25/17 23:24 Intake and Output: 02/25/17 02/26/17 18:59 06:59 Intake Total 420 Output Total 400 Balance 20 - Medications Medications: Current Medications Clonidine HCl (Catapres) 0.1 mg PO Q8H [facility] Last Admin: 02/25/17 19:17 Dose: 0.1 mg Potassium Chloride/Dextrose/Sod Cl (Potassium Chl 20 Meq In D5-1/2ns) 1,000 mls @ 150 mls/hr IV .Q6H40M [facility] Last Admin: 02/24/17 10:16 Dose: 150 mls/hr Ondansetron HCl (Zofran Inj) 4 mg IVP Q6 PRN PRN Reason: Nausea/Vomiting Pantoprazole Sodium (Protonix Ec Tab) 40 mg PO DAILY [facility] Last Admin: 02/25/17 12:26 Dose: 40 mg Phenytoin Sodium (Dilantin) 100 mg PO Q8H [facility] Last Admin: 02/25/17 22:07 Dose: 100 mg Pneumococcal Polyvalent Vaccine (Pneumovax 23 Vaccine) 0.5 ml IM .ONCE ONE Stop: 02/26/17 10:01 Sertraline HCl (Zoloft) 50 mg PO DAILY [facility] Last Admin: 02/25/17 09:45 Dose: 50 mg Thiamine HCl (Vitamin B1 Tab) 100 mg PO DAILY [facility] Last Admin: 02/25/17 12:26 Dose: 100 mg Trazodone HCl (Desyrel) 50 mg PO HS [facility] Last Admin: 02/25/17 21:15 Dose: 50 mg - Labs Labs: 02/25/17 07:08 02/25/17 07:08 PT 12.6 SECONDS (9.7-12.2) H 02/23/17 08:37 INR 1.1 02/23/17 08:37 APTT 29 SECONDS (21-34) 02/23/17 08:37 - Constitutional Appears: Non-toxic, No Acute Distress - Head Exam Head Exam: ATRAUMATIC, NORMAL INSPECTION - Eye Exam Eye Exam: EOMI Pupil Exam: NORMAL ACCOMODATION - ENT Exam ENT Exam: Mucous Membranes Moist - Respiratory Exam Respiratory Exam: Clear to Ausculation Bilateral, NORMAL BREATHING PATTERN. absent: Respiratory Distress - Cardiovascular Exam Cardiovascular Exam: REGULAR RHYTHM, +S1, +S2 - GI/Abdominal Exam GI & Abdominal Exam: Soft, Normal Bowel Sounds. absent: Distended, Firm, Guarding, Tenderness - Extremities Exam Extremities Exam: Normal Inspection - Back Exam Back Exam: NORMAL INSPECTION - Neurological Exam Neurological Exam: Alert, Awake, Oriented x3 - Psychiatric Exam Psychiatric exam: Normal Affect, Normal Mood - Skin Skin Exam: Dry, Intact, Normal Color, Warm Assessment and Plan - Assessment and Plan (Free Text) Assessment: This is a 56 yo male with past medical hx of drug abuse, cerebral palsy, seizures, GERD presenting with: 1. Overdose Telemetry No IV access currently flumazenil 0.2 mg IVP ONCE Narcan 0.4 IVP ONCE Thiamine 100 mg PO daily Psych consult, Dr. Smith, help appreciated UDS positive for benzo, opiates, Alcohol Seizure precautions Aspiration precautions Fall risk protocol clonidine .1 mg q 8 pending possible transfer to [facility] for suicide ideation - family would like patient in detox and not in psych 2. Suicide attempt Psych consult, Dr. Smith, help appreciated 1:1 observation 3. Seizure disorder Phenytoin 100 mg PO Q8H Seizure precautions 4. Prophylactic measures Protonix 40 mg PO daily Zofran 4 mg IVP Q6H PRN>> will change to PO <Steven Mari - Last Filed: 02/26/17 09:49> Objective - Vital Signs/Intake and Output Vital Signs (last 24 hours): Temp Pulse Resp BP Pulse Ox 97.9 F 94 H 18 137/91 H 97 02/26/17 09:11 02/26/17 09:11 02/26/17 09:11 02/26/17 09:11 02/26/17 09:11 Intake and Output: 02/26/17 02/26/17 06:59 18:59 Intake Total 660 Output Total 750 Balance -90 - Medications Medications: Current Medications Clonidine HCl (Catapres) 0.1 mg PO Q8H [facility] Last Admin: 02/26/17 04:19 Dose: 0.1 mg Potassium Chloride/Dextrose/Sod Cl (Potassium Chl 20 Meq In D5-1/2ns) 1,000 mls @ 150 mls/hr IV .Q6H40M [facility] Last Admin: 02/26/17 07:49 Dose: Not Given Ondansetron HCl (Zofran Inj) 4 mg IVP Q6 PRN PRN Reason: Nausea/Vomiting Pantoprazole Sodium (Protonix Ec Tab) 40 mg PO DAILY [facility] Last Admin: 02/25/17 12:26 Dose: 40 mg Phenytoin Sodium (Dilantin) 100 mg PO Q8H [facility] Last Admin: 02/26/17 06:43 Dose: 100 mg Pneumococcal Polyvalent Vaccine (Pneumovax 23 Vaccine) 0.5 ml IM .ONCE ONE Stop: 02/26/17 10:01 Sertraline HCl (Zoloft) 50 mg PO DAILY [facility] Last Admin: 02/25/17 09:45 Dose: 50 mg Thiamine HCl (Vitamin B1 Tab) 100 mg PO DAILY [facility] Last Admin: 02/25/17 12:26 Dose: 100 mg Trazodone HCl (Desyrel) 50 mg PO HS [facility] Last Admin: 02/25/17 21:15 Dose: 50 mg - Labs Labs: 02/26/17 07:11 02/26/17 07:11 PT 12.6 SECONDS (9.7-12.2) H 02/23/17 08:37 INR 1.1 02/23/17 08:37 APTT 29 SECONDS (21-34) 02/23/17 08:37 Attending/Attestation - Attestation I have personally seen and examined this patient.: Yes I have fully participated in the care of the patient.: Yes I have reviewed all pertinent clinical information, including history, physical exam and plan: Yes Notes (Text): 02/26/17 09:47 Patient was seen and examined by me. Agree with the above note by the resident. The patient again asked for narcotic medications. I had to explain to him that because he tried to take his own life with narcotics that we would not be giving these class of medications. He is much more awake and alert than when he came to the ER. Will stop the edmonds cathter today. He remains on 1 to 1 From my understanding there maybe an evaluation for invoulntary placement at [facility] at [facility] psychiatry unit thank you Steven Mari
[2017-02-26 07:32] LABS: BASO # 0.1 K/uL (0.0-0.2); BASO % 0.7 % (0.0-2.0); EOS % 0.5 % (0.0-4.0); LYMPH # 1.6 K/uL (1.0-4.3); LYMPH % 21.5 % (20.0-40.0); MEAN CELL VOLUME 87.3 fL (80.0-94.0); MEAN CORPUSCULAR HEMOGLOBIN 29.2 pg (27.0-31.0); MEAN CORPUSCULAR HGB CONC 33.5 g/dL (33.0-37.0); MONO # 0.5 K/uL (0.0-0.8); MONO % 6.5 % (0.0-10.0); NRBC % 0.1 % (0.0-2.0); RED CELL DISTRIBUTION WIDTH 14.2 % (11.5-14.5); WHITE BLOOD COUNT 7.6 K/uL (4.8-10.8)
[2017-02-26] MEDS: Potassium Ch 20mEq in D5-1/2NS 1,000 ML IV SCH ×4 (07:47→13:39)
[2017-02-26] MEDS: Thiamine 100 mg/ml Inj IV SCH (07:48)
[2017-02-26 08:07] LABS: CHLORIDE 102 mmol/L (98-107)
[2017-02-26 08:08] LABS: POTASSIUM 3.7 mmol/L (3.6-5.2); SODIUM 139 mmol/L (132-148)
[2017-02-26 08:10] LABS: ALB/GLOB RATIO 1.3 (1.0-2.1); ALKALINE PHOSPHATASE 91 U/L (38-126); AST/SGOT 21 U/L (17-59); BILIRUBIN,TOTAL 1.2 mg/dL (0.2-1.3); BLOOD UREA NITROGEN 12 mg/dL (9-20); CARBON DIOXIDE 23 mmol/L (22-30); GFR AFRICAN-AMERICAN > 60; GLUCOSE,RANDOM 112 mg/dL (75-110); TOTAL PROTEIN 7.7 g/dL (6.3-8.3)
[2017-02-26 08:11] LABS: ALT/SGPT 15 U/L (21-72); CALCIUM 8.9 mg/dl (8.6-10.4); MAGNESIUM 2.4 mg/dL (1.6-2.3); PHOSPHOROUS 4.3 mg/dL (2.5-4.5)
[2017-02-26] MEDS: Pantoprazole 40 mg EC Tab PO SCH (09:55)
[2017-02-26] MEDS ORDERED: Pneumococcal 23-Valent Vaccine IM ONE (10:00)
--- NOTE | 2017-02-27 02:07 | CP.PCM.PN ---
<Lourdes Vasquez - Last Filed: 02/27/17 02:04> Subjective - Date & Time of Evaluation Date of Evaluation: 02/27/17 Time of Evaluation: 01:00 - Subjective Subjective: Pt seen and examined at bedside. No acute distress. Pt having soft stool. Concern is for suicide and pt to be transferred involuntary to [facility]. Patient was asking for stronger pain medications as he has on many occasions. No new complaints. Objective - Vital Signs/Intake and Output Vital Signs (last 24 hours): Temp Pulse Resp BP Pulse Ox 98.3 F 100 H 200 H 121/87 99 02/27/17 00:40 02/27/17 00:40 02/27/17 00:40 02/27/17 00:40 02/27/17 00:40 - Medications Medications: Current Medications Clonidine HCl (Catapres) 0.1 mg PO Q8H [facility] Last Admin: 02/26/17 18:41 Dose: 0.1 mg Ondansetron HCl (Zofran Inj) 4 mg IVP Q6 PRN PRN Reason: Nausea/Vomiting Pantoprazole Sodium (Protonix Ec Tab) 40 mg PO DAILY [facility] Last Admin: 02/26/17 09:55 Dose: 40 mg Phenytoin Sodium (Dilantin) 100 mg PO Q8H [facility] Last Admin: 02/26/17 21:51 Dose: 100 mg Sertraline HCl (Zoloft) 50 mg PO DAILY [facility] Last Admin: 02/26/17 09:55 Dose: 50 mg Thiamine HCl (Vitamin B1 Tab) 100 mg PO DAILY [facility] Last Admin: 02/26/17 09:55 Dose: 100 mg Trazodone HCl (Desyrel) 50 mg PO HS [facility] Last Admin: 02/26/17 21:51 Dose: 50 mg - Labs Labs: 02/26/17 07:11 02/26/17 07:11 PT 12.6 SECONDS (9.7-12.2) H 02/23/17 08:37 INR 1.1 02/23/17 08:37 APTT 29 SECONDS (21-34) 02/23/17 08:37 - Constitutional Appears: Non-toxic, No Acute Distress - Head Exam Head Exam: ATRAUMATIC, NORMAL INSPECTION - Eye Exam Eye Exam: EOMI, PERRL - ENT Exam ENT Exam: Mucous Membranes Moist - Respiratory Exam Respiratory Exam: Clear to Ausculation Bilateral, NORMAL BREATHING PATTERN. absent: Accessory Muscle Use, Rales, Rhonchi, Wheezes, Respiratory Distress - Cardiovascular Exam Cardiovascular Exam: REGULAR RHYTHM, +S1, +S2 - GI/Abdominal Exam GI & Abdominal Exam: Soft, Normal Bowel Sounds. absent: Distended, Firm, Guarding, Tenderness - Extremities Exam Extremities Exam: Normal Inspection. absent: Pedal Edema - Back Exam Back Exam: NORMAL INSPECTION. absent: CVA tenderness (L), CVA tenderness (R), paraspinal tenderness - Neurological Exam Neurological Exam: Alert, Awake, CN II-XII Intact, Oriented x3 - Psychiatric Exam Psychiatric exam: Normal Affect, Normal Mood - Skin Skin Exam: Dry, Intact, Normal Color, Warm Assessment and Plan - Assessment and Plan (Free Text) Assessment: This is a 56 yo male with past medical hx of drug abuse, cerebral palsy, seizures, GERD presenting with: 1. Overdose Telemetry No IV access currently flumazenil 0.2 mg IVP ONCE Narcan 0.4 IVP ONCE Thiamine 100 mg PO daily Psych consult, Dr. Smith, help appreciated UDS positive for benzo, opiates, Alcohol Seizure precautions Aspiration precautions Fall risk protocol clonidine .1 mg q 8 pending possible transfer to [facility] for suicide ideation - family would like patient in detox and not in psych 2. Suicide attempt Psych consult, Dr. Smith, help appreciated 1:1 observation 3. Seizure disorder Phenytoin 100 mg PO Q8H Seizure precautions 4. Prophylactic measures Protonix 40 mg PO daily Zofran 4 mg IVP Q6H PRN>> will change to PO edmonds discontinued <Steven Mari H - Last Filed: 02/27/17 08:59> Objective - Vital Signs/Intake and Output Vital Signs (last 24 hours): Temp Pulse Resp BP Pulse Ox 98 F 87 18 148/96 H 96 02/27/17 08:41 02/27/17 08:41 02/27/17 08:41 02/27/17 08:41 02/27/17 08:41 Intake and Output: 02/27/17 02/27/17 06:59 18:59 Intake Total 240 Balance 240 - Medications Medications: Current Medications Clonidine HCl (Catapres) 0.1 mg PO Q8H [facility] Last Admin: 02/27/17 04:30 Dose: 0.1 mg Diphenhydramine HCl (Benadryl) 25 mg PO Q12 PRN PRN Reason: Insomnia Ondansetron HCl (Zofran Inj) 4 mg IVP Q6 PRN PRN Reason: Nausea/Vomiting Pantoprazole Sodium (Protonix Ec Tab) 40 mg PO DAILY [facility] Last Admin: 02/26/17 09:55 Dose: 40 mg Phenytoin Sodium (Dilantin) 100 mg PO Q8H [facility] Last Admin: 02/27/17 06:14 Dose: 100 mg Sertraline HCl (Zoloft) 50 mg PO DAILY [facility] Last Admin: 02/26/17 09:55 Dose: 50 mg Thiamine HCl (Vitamin B1 Tab) 100 mg PO DAILY [facility] Last Admin: 02/26/17 09:55 Dose: 100 mg Trazodone HCl (Desyrel) 50 mg PO HS [facility] Last Admin: 02/26/17 21:51 Dose: 50 mg - Labs Labs: 02/27/17 07:56 02/27/17 07:56 PT 12.6 SECONDS (9.7-12.2) H 02/23/17 08:37 INR 1.1 02/23/17 08:37 APTT 29 SECONDS (21-34) 02/23/17 08:37 Attending/Attestation - Attestation I have personally seen and examined this patient.: Yes I have fully participated in the care of the patient.: Yes I have reviewed all pertinent clinical information, including history, physical exam and plan: Yes Notes (Text): Medical Attending: Patient was seen and examined by me. Agree with the above note by resident. The patient said he won't ask for narcotics anymore (we had a long discussion yesterday) The patient said he still has insomia probably from withdrawl. Getting Trazadone for sleep. Added on Benadryl q12 small dose. He looks a lot more awake than before. Yesterday DC the edmonds, he is doing ok so far The patient appetite is minimal according to the nursing aid in the room. Ensure was ordered but he requested a different one since chocolate causing him problems. thank you Steven Mari
[2017-02-27 08:11] LABS: BASO % 0.6 % (0.0-2.0); EOS # 0.1 K/uL (0.0-0.7); EOS % 0.7 % (0.0-4.0); HEMATOCRIT 46.6 % (35.0-51.0); LYMPH # 1.8 K/uL (1.0-4.3); LYMPH % 22.4 % (20.0-40.0); MEAN CELL VOLUME 86.3 fL (80.0-94.0); MEAN CORPUSCULAR HEMOGLOBIN 29.6 pg (27.0-31.0); MEAN CORPUSCULAR HGB CONC 34.4 g/dL (33.0-37.0); MEAN PLATELET VOLUME 7.8 fL (7.2-11.7); MONO # 0.6 K/uL (0.0-0.8); MONO % 7.7 % (0.0-10.0); NRBC % 0.1 % (0.0-2.0); RED CELL DISTRIBUTION WIDTH 14.4 % (11.5-14.5)
[2017-02-27 08:16] LABS: CHLORIDE 100 mmol/L (98-107); POTASSIUM 3.8 mmol/L (3.6-5.2); SODIUM 139 mmol/L (132-148)
[2017-02-27 08:18] LABS: GFR AFRICAN-AMERICAN > 60
[2017-02-27 08:19] LABS: ALB/GLOB RATIO 1.4 (1.0-2.1); ALKALINE PHOSPHATASE 91 U/L (38-126); ALT/SGPT 21 U/L (21-72); AST/SGOT 22 U/L (17-59); BLOOD UREA NITROGEN 16 mg/dL (9-20); CALCIUM 8.8 mg/dl (8.6-10.4); CARBON DIOXIDE 26 mmol/L (22-30); GLUCOSE,RANDOM 105 mg/dL (75-110); TOTAL PROTEIN 7.7 g/dL (6.3-8.3)
[2017-02-27] MEDS: Pantoprazole 40 mg EC Tab PO SCH (10:20)
[2017-02-27 15:29] VITALS: RESP 20
--- NOTE | 2017-02-27 21:29 | CARD ---
APPROVED REPORT EKG Measurement Heart [id number] <Conclusion> Normal sinus rhythm Moderate voltage criteria for LVH, may be normal variant Borderline ECG
[2017-02-28 07:56] LABS: BASO % 0.6 % (0.0-2.0); EOS # 0.1 K/uL (0.0-0.7); EOS % 1.5 % (0.0-4.0); HEMATOCRIT 45.7 % (35.0-51.0); LYMPH # 1.8 K/uL (1.0-4.3); MEAN CELL VOLUME 87.1 fL (80.0-94.0); MEAN CORPUSCULAR HEMOGLOBIN 29.3 pg (27.0-31.0); MEAN CORPUSCULAR HGB CONC 33.7 g/dL (33.0-37.0); MONO # 0.5 K/uL (0.0-0.8); MONO % 7.9 % (0.0-10.0); RED CELL DISTRIBUTION WIDTH 14.1 % (11.5-14.5); WHITE BLOOD COUNT 6.8 K/uL (4.8-10.8)
[2017-02-28 08:14] LABS: CHLORIDE 98 mmol/L (98-107); SODIUM 139 mmol/L (132-148)
[2017-02-28 08:16] LABS: ALB/GLOB RATIO 1.4 (1.0-2.1); ALKALINE PHOSPHATASE 87 U/L (38-126); AST/SGOT 24 U/L (17-59); BILIRUBIN,TOTAL 0.8 mg/dL (0.2-1.3); BLOOD UREA NITROGEN 17 mg/dL (9-20); CALCIUM 8.8 mg/dl (8.6-10.4); CARBON DIOXIDE 27 mmol/L (22-30); GFR AFRICAN-AMERICAN > 60; GLUCOSE,RANDOM 104 mg/dL (75-110); TOTAL PROTEIN 7.6 g/dL (6.3-8.3)
[2017-02-28 08:17] LABS: ALT/SGPT 25 U/L (21-72)
[2017-02-28] MEDS: Pantoprazole 40 mg EC Tab PO SCH (09:50)
--- NOTE | 2017-02-28 11:00 | CP.PCM.PN ---
Subjective - Date & Time of Evaluation Date of Evaluation: 02/28/17 Time of Evaluation: 07:10 - Subjective Subjective: Pt seen and examined at bedside. Nursing reports 3 episodes of soft stool in the afternoon and evening yesterday, but none this morning. Today, pt is comfortable and in no acute distress. Pt expresses interest in leaving because he states his father is hospitalized at [facility] with stage 4 cancer. He states his father is going to pass away and would like to see him. Denies suicidal or homicidal ideation. Reports poor appetite. Pt denies fever, chills, headache, dizziness, chest pain, palpitations, shortness of breath, abdominal pain, bowel/ bladder pain or leg swelling/pain. Objective - Vital Signs/Intake and Output Vital Signs (last 24 hours): Temp Pulse Resp BP Pulse Ox 98.4 F 80 20 139/75 95 02/27/17 23:30 02/28/17 04:25 02/27/17 23:30 02/28/17 04:25 02/27/17 23:30 Intake and Output: 02/28/17 02/28/17 06:59 18:59 Intake Total 360 Balance 360 - Medications Medications: Current Medications Clonidine HCl (Catapres) 0.1 mg PO Q8H [facility] Last Admin: 02/28/17 04:30 Dose: 0.1 mg Diphenhydramine HCl (Benadryl) 25 mg PO HS PRN PRN Reason: Insomnia Ondansetron HCl (Zofran Inj) 4 mg IVP Q6 PRN PRN Reason: Nausea/Vomiting Pantoprazole Sodium (Protonix Ec Tab) 40 mg PO DAILY [facility] Last Admin: 02/28/17 09:50 Dose: 40 mg Phenytoin Sodium (Dilantin) 100 mg PO Q8H [facility] Last Admin: 02/28/17 05:35 Dose: 100 mg Sertraline HCl (Zoloft) 50 mg PO DAILY [facility] Last Admin: 02/28/17 09:50 Dose: 50 mg Thiamine HCl (Vitamin B1 Tab) 100 mg PO DAILY [facility] Last Admin: 02/28/17 09:50 Dose: 100 mg Trazodone HCl (Desyrel) 50 mg PO HS [facility] Last Admin: 02/27/17 23:01 Dose: 50 mg - Labs Labs: 02/28/17 07:51 02/28/17 07:51 PT 12.6 SECONDS (9.7-12.2) H 02/23/17 08:37 INR 1.1 02/23/17 08:37 APTT 29 SECONDS (21-34) 02/23/17 08:37 - Constitutional Appears: Non-toxic, No Acute Distress, Chronically Ill, Other (cerebral palsy) - Head Exam Head Exam: ATRAUMATIC, NORMOCEPHALIC - Eye Exam Eye Exam: EOMI, Normal appearance. absent: Scleral icterus - Cardiovascular Exam Cardiovascular Exam: REGULAR RHYTHM, +S1, +S2. absent: JVD - GI/Abdominal Exam GI & Abdominal Exam: Soft, Normal Bowel Sounds. absent: Distended, Firm, Tenderness - Extremities Exam Extremities Exam: Normal Inspection. absent: Calf Tenderness, Pedal Edema, Tenderness - Neurological Exam Neurological Exam: Alert, Awake, Normal Gait, Oriented x3 - Psychiatric Exam Psychiatric exam: Normal Affect, Normal Mood. absent: Homicidal Ideation, Suicidal Ideation - Skin Skin Exam: Dry, Intact, Normal Color, Warm Assessment and Plan - Assessment and Plan (Free Text) Assessment: Assessment: This is a 56 yo male with past medical hx of drug abuse, cerebral palsy, seizures, GERD presenting with: Plan: Overdose Now at baseline mental status, AA0 x 3 Overdose on Xanax with suicide attempt Psych consult, Dr. Smith, help appreciated - pending possible transfer to [facility] for suicide ideation - family would like patient in detox and not in psych clonidine .1 mg q 8 Thiamine 100 mg PO daily Upon admission given flumazenil 0.2 mg IVP ONCE and Narcan 0.4 IVP ONCE. 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
[2017-02-28] MEDS ORDERED: Loperamide Hydrochloride 1 mg/5 ml Cup PO PRN (11:09)
[2017-02-28 11:25] VITALS: BP 150/65
[2017-02-28 11:26] VITALS: PULSE 94; TEMP 97.4; O2SAT 98
--- NOTE | 2017-02-28 11:57 | PCM.PYCHPN ---
Psychiatric Progress Note - Psychiatric Progress Note Patient seen today, length of contact: 16 min Patient Chief Complaint: 'I am doing much better.' Problems Identified/Issues Discussed: Patient seen and evaluated, chart reviewed and discussed with the nurse. Today patient reports much improvement in his mood and denies any feelings of hopelessness or helplessness. He denies any suicidal ideation or homicidal ideation. He is taking medications and denies any side effects. Spoke with pt.'s sister Toyin # [phone]. As per the sister, patient is doing much better. As per her, he was never suicidal, however he abuse drugs and sometimes overdose on drugs to get high. Supportive therapy and psychoeducation were given. Medication Change: Yes (increase zoloft, start Remeron) Medical Record Reviewed: Yes Mental Status Examination - Cognitive Function Orientation: Person, Place, Situation, Time Memory: Intact Attention: WNL Concentration: WNL Association: WNL Fund of Knowledge: WNL - Mood Mood: Anxious - Affect Affect: Constricted - Speech Speech: Soft - Formal Thought Process Formal Thought Process: No Impairment - Suicidal Ideation Suicidal Ideation: No - Homicidal Ideation Homicidal Ideation: No Goal/Treatment Plan - Goal/Treatment Plan Need for Continued Stay: Severe functional impairment Progress Toward Problem(s) and Goals/Treatment Plan: Major 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
--- NOTE | 2017-02-28 16:09 | CP.PCM.DIS ---
<PedroLourdes - Last Filed: 02/28/17 16:03> Provider - Provider Date of Admission: 02/24/17 09:30 Attending physician: Reji Anthony MD Primary care physician: Dr. José Kay Consults: Dr Nj - psychiatry Time Spent in preparation of Discharge (in minutes): 35 Diagnosis - Discharge Diagnosis (1) Benzodiazepine overdose Status: Acute Hospital Course - Lab Results Lab Results: Micro Results 02/24/17 Unknown Stool Stool Culture - Final NO SALMONELLA, SHIGELLA OR CAMPYLOBACTER ISOLATED. 02/24/17 Unknown Stool Ova and Parasite Concentrate Exam - Final Most Recent Lab Values WBC 6.8 K/uL (4.8-10.8) 02/28/17 07:51 RBC 5.25 Mil/uL (4.40-5.90) 02/28/17 07:51 Hgb 15.4 g/dL (12.0-18.0) 02/28/17 07:51 Hct 45.7 % (35.0-51.0) 02/28/17 07:51 MCV 87.1 fL (80.0-94.0) 02/28/17 07:51 MCH 29.3 pg (27.0-31.0) 02/28/17 07:51 MCHC 33.7 g/dL (33.0-37.0) 02/28/17 07:51 RDW 14.1 % (11.5-14.5) 02/28/17 07:51 Plt Count 288 K/uL (130-400) 02/28/17 07:51 MPV 8.0 fL (7.2-11.7) 02/28/17 07:51 Neut % (Auto) 63.0 % (50.0-75.0) 02/28/17 07:51 Lymph % (Auto) 27.0 % (20.0-40.0) 02/28/17 07:51 [place] % (Auto) 7.9 % (0.0-10.0) 02/28/17 07:51 Eos % (Auto) 1.5 % (0.0-4.0) 02/28/17 07:51 Baso % (Auto) 0.6 % (0.0-2.0) 02/28/17 07:51 Neut # 4.3 K/uL (1.8-7.0) 02/28/17 07:51 Lymph # 1.8 K/uL (1.0-4.3) 02/28/17 07:51 [place] # 0.5 K/uL (0.0-0.8) 02/28/17 07:51 Eos # 0.1 K/uL (0.0-0.7) 02/28/17 07:51 Baso # 0.0 K/uL (0.0-0.2) 02/28/17 07:51 PT 12.6 SECONDS (9.7-12.2) H 02/23/17 08:37 INR 1.1 02/23/17 08:37 APTT 29 SECONDS (21-34) 02/23/17 08:37 Puncture Site Rb 02/22/17 21:00 pCO2 37 mm/Hg (35-45) 02/22/17 21:00 pO2 80 mm/Hg (80-100) 02/22/17 21:00 HCO3 25.7 mmol/L (21-28) 02/22/17 21:00 ABG pH 7.44 (7.35-7.45) 02/22/17 21:00 ABG Total CO2 26.2 mmol/L (22-28) 02/22/17 21:00 ABG O2 Saturation 98.8 % (95-98) H 02/22/17 21:00 ABG Base Excess 1.1 mmol/L (-2.0-3.0) 02/22/17 21:00 ABG Hemoglobin 12.8 g/dL (11.7-17.4) 02/22/17 21:00 ABG Carboxyhemoglobin 2.0 % (0.5-1.5) H 02/22/17 21:00 POC ABG HHb (Measured) 1.2 % (0.0-5.0) 02/22/17 21:00 ABG Methemoglobin 1.2 % (0.0-3.0) 02/22/17 21:00 Anthony Test N 02/22/17 21:00 A-a O2 Difference 73.0 mm/Hg 02/22/17 21:00 Respiratory Index 0.9 02/22/17 21:00 Hgb O2 Saturation 95.6 % (95.0-98.0) 02/22/17 21:00 Liter Flow 2.0 02/22/17 21:00 FiO2 28.0 % 02/22/17 21:00 Sodium 139 mmol/L (132-148) 02/28/17 07:51 Potassium 4.0 mmol/L (3.6-5.2) 02/28/17 07:51 Chloride 98 mmol/L (98-107) 02/28/17 07:51 Carbon Dioxide 27 mmol/L (22-30) 02/28/17 07:51 Anion Gap 18 (10-20) 02/28/17 07:51 BUN 17 mg/dL (9-20) 02/28/17 07:51 Creatinine 0.6 MG/DL (0.8-1.5) L 02/28/17 07:51 Est GFR ( Amer) > 60 02/28/17 07:51 Est GFR (Non-Af Amer) > 60 02/28/17 07:51 POC Glucose (mg/dL) 84 mg/dL (65-110) 02/28/17 12:00 Random Glucose 104 mg/dL (75-110) 02/28/17 07:51 Calcium 8.8 mg/dl (8.6-10.4) 02/28/17 07:51 Phosphorus 4.3 mg/dL (2.5-4.5) 02/26/17 07:11 Magnesium 2.4 mg/dL (1.6-2.3) H 02/26/17 07:11 Total Bilirubin 0.8 mg/dL (0.2-1.3) 02/28/17 07:51 AST 24 U/L (17-59) 02/28/17 07:51 ALT 25 U/L (21-72) 02/28/17 07:51 Alkaline Phosphatase 87 U/L (38-126) 02/28/17 07:51 Troponin I < 0.0120 ng/mL (0.00-0.120) 02/23/17 08:37 Total Protein 7.6 g/dL (6.3-8.3) 02/28/17 07:51 Albumin 4.4 g/dL (3.5-5.0) 02/28/17 07:51 Globulin 3.2 gm/dL (2.2-3.9) 02/28/17 07:51 Albumin/Globulin Ratio 1.4 (1.0-2.1) 02/28/17 07:51 Urine Color Yellow (YELLOW) 02/22/17 16:54 Urine Clarity Clear (Clear) 02/22/17 16:54 Urine pH 6.0 (5.0-8.0) 02/22/17 16:54 Ur Specific [place] 1.016 (1.003-1.030) 02/22/17 16:54 Urine Protein Negative mg/dL (NEGATIVE) 02/22/17 16:54 Urine Glucose (UA) Normal mg/dL (Normal) 02/22/17 16:54 Urine Ketones Negative mg/dL (NEGATIVE) 02/22/17 16:54 Urine Blood 1+ (NEGATIVE) H 02/22/17 16:54 Urine Nitrate Negative (NEGATIVE) 02/22/17 16:54 Urine Bilirubin Negative (NEGATIVE) 02/22/17 16:54 Urine Urobilinogen Normal mg/dL (0.2-1.0) 02/22/17 16:54 Ur Leukocyte Esterase Neg Dyllan/uL (Negative) 02/22/17 16:54 Urine WBC (Auto) < 1 /hpf (0-5) 02/22/17 16:54 Urine RBC (Auto) 4 /hpf (0-3) H 02/22/17 16:54 Ur Squamous Epith Cells < 1 /hpf (0-5) 02/22/17 16:54 Urine Bacteria Rare (<OCC) 02/22/17 16:54 Stool Occult Blood Negative (NEGATIVE) 02/24/17 15:54 Stool Leukocytes, Qual Negative (NEGATIVE) 02/24/17 Unknown Salicylates < 1.0 mg/dL 1 02/22/17 17:28 Urine Opiates Screen Positive (NEGATIVE) 02/22/17 16:54 Urine Methadone Screen Positive (NEGATIVE) 02/22/17 16:54 Acetaminophen < 10.0 ug/mL (10.0-30.0) L 02/22/17 17:28 Ur Barbiturates Screen Negative (NEGATIVE) 02/22/17 16:54 Phenytoin 5.5 ug/mL (10-20) L 02/27/17 19:35 Ur Phencyclidine Scrn Negative (NEGATIVE) 02/22/17 16:54 Ur Amphetamines Screen Negative (NEGATIVE) 02/22/17 16:54 U Benzodiazepines Scrn Positive (NEGATIVE) 02/22/17 16:54 U Oth Cocaine Metabols Negative (NEGATIVE) 02/22/17 16:54 U Cannabinoids Screen Negative (NEGATIVE) 02/22/17 16:54 Alcohol, Quantitative 18 mg/dl (0-10) H 02/22/17 16:41 C. difficile Ag & Toxin Negative (NEGATIVE) 02/24/17 Unknown - Hospital Course Hospital Course: On admission: 56M with PMH significant for cerebral palsy and seizures who was brought in by EMS for overdose and Suicide attempt. As per EMS, the initial call was for chest pain. When they arrived, patient was altered. EMS also reported that he took 8 xanax around 10am today and that patient admitted that this was a suicide attempt. ROS unobtainable due to mental status. Patient with toxic encephalopathy diagnosis in setting of AMS secondary to benzo, opiate, alcohol use During hospital stay: Upon admission he was given flumazenil 0.2 mg IVP ONCE and Narcan 0.4 IVP ONCE. UDS positive for benzo, opiates,alcohol. He was put on Seizure precautions, Aspiration precautions, Fall risk protocol, sectionizer and 1:1 observation. Psych consult, Dr. Smith/Clem who suggested pending possible transfer to [facility] [place] for suicide ideation. Family had wanted patient in detox and not in psych. Patient is now now at baseline mental status , AA0 x 3. He was continued on Dilantin 100mg PO Q8 hours for his seizure disorder. He was given Zoloft 100mg PO daily for depression. Trazodone and benadryl were given for insomnia. Head CT was negative for acute pathology. Patient is stable for discharge per psychiatry. Patient is to follow up in the [facility] for post hospital care. He is also to follow up with his primary care doctor José Eastman within 1 week of discharge. He is to take the following medications: Mirtazapine 15mg one by mouth at bedtime (disp#15) Dilantin 100 mg one by mouth every 8 hours (disp#5) Zoloft 100mg one by mouth daily (disp#15) Trazodone 50mg one by mouth at bedtime (disp#15) All perceptions were sent to [facility] (patient's preferred pharmacy) Patient is to return to the emergency room if symptoms persist. All instructions explained to the patient and he agrees. Dr. Nj. psychiatry, spoke to the patient's sister Toyin about his discharge. *This is a summary of the hospital stay. Please refer to EMR for full details. Assessment: This is a 56 yo male with past medical hx of drug abuse, cerebral palsy, seizures, GERD presenting with: Plan: Overdose Now at baseline mental status, AA0 x 3 Overdose on Xanax with suicide attempt Psych consult, Dr. Smith, help appreciated - pending possible transfer to [facility] [place] for suicide ideation - family would like patient in detox and not in psych clonidine .1 mg q 8 Thiamine 100 mg PO daily Upon admission given flumazenil 0.2 mg IVP ONCE and Narcan 0.4 IVP ONCE. UDS positive for benzo, opiates, Alcohol Seizure precautions Aspiration precautions Fall risk protocol sectionizer 1:1 observation Seizure disorder Phenytoin 100 mg PO Q8H Level 6/: 5.5 Seizure precautions Depression Sertaline 50 mg PO daily Insomnia diphenhydramine 25 mg PO HS PRN Trazadone 50 mg PO HS Low appetite Will consider Remeron Ensure supplemtns Diarrhea per nursing stool is soft imodium 1 g q8 PRN Prophylactic measures Pepcid 20 mg PO BID Heparin 5000 U SC Q12 Discharge Exam - Head Exam Head Exam: ATRAUMATIC, NORMOCEPHALIC Additional comments: cerebral palsy - Eye Exam Eye Exam: EOMI, Normal appearance Pupil Exam: NORMAL ACCOMODATION - ENT Exam ENT Exam: Mucous Membranes Moist - Respiratory Exam Respiratory Exam: Clear to PA & Lateral, NORMAL BREATHING PATTERN. absent: Accessory Muscle Use, Prolonged Expiratory Phase, Rhonchi, Wheezes, Respiratory Distress, UNREMARKABLE - GI/Abdominal Exam GI & Abdominal Exam: Normal Bowel Sounds. absent: Diminished Bowel Sounds, Distended, Firm, Guarding, Soft, Tenderness - Extremities Exam Extremities exam: pedal edema - Back Exam Back exam: NORMAL INSPECTION. absent: CVA tenderness (L), CVA tenderness (R), paraspinal tenderness - Neurological Exam Neurological exam: Alert, CN II-XII Intact, Normal Gait, Oriented x3 - Psychiatric Exam Psychiatric exam: Normal Affect, Normal Mood - Skin Skin Exam: Dry, Intact, Warm Discharge Plan - Discharge Medications Prescriptions: RX: Mirtazapine [Remeron] 15 mg PO HS #15 tab Phenytoin, Extended [Dilantin Kapseals] 100 mg PO Q8 #15 cer RX: Sertraline [Zoloft] 100 mg PO DAILY #15 tab RX: traZODone [Desyrel] 50 mg PO HS #15 tab - Follow Up Plan Condition: STABLE Disposition: HOME/ ROUTINE Instructions: Trazodone (By mouth), Phenytoin (By mouth), Sertraline (By mouth) , Mirtazapine (By mouth), Heart Healthy Diet (DC), Recurrent Seizures in Adults (DC) Additional Instructions: Patient is stable for discharge per psychiatry. Patient is to follow up in the [facility] for post hospital care. He is also to follow up with his primary care doctor José Eastman within 1 week of discharge. He is to take the following medications: Mirtazapine 15mg one by mouth at bedtime (disp#15) Dilantin 100 mg one by mouth every 8 hours (disp#5) Zoloft 100mg one by mouth daily (disp#15) Trazodone 50mg one by mouth at bedtime (disp#15) All perceptions were sent to [facility] (patient's preferred pharmacy) Patient is to return to the emergency room if symptoms persist. All instructions explained to the patient and he agrees. Dr. Nj. psychiatry, spoke to the patient's sister Toyin about his discharge. Referrals: Larissa Nj MD [Staff Provider] - <Kim Oneal V - Last Filed: 02/28/17 22:22> Provider - Provider Date of Admission: 02/24/17 09:30 Attending physician: Reji Anthony MD Hospital Course - Lab Results Lab Results: Micro Results 02/24/17 Unknown Stool Stool Culture - Final NO SALMONELLA, SHIGELLA OR CAMPYLOBACTER ISOLATED. 02/24/17 Unknown Stool Ova and Parasite Concentrate Exam - Final Most Recent Lab Values WBC 6.8 K/uL (4.8-10.8) 02/28/17 07:51 RBC 5.25 Mil/uL (4.40-5.90) 02/28/17 07:51 Hgb 15.4 g/dL (12.0-18.0) 02/28/17 07:51 Hct 45.7 % (35.0-51.0) 02/28/17 07:51 MCV 87.1 fL (80.0-94.0) 02/28/17 07:51 MCH 29.3 pg (27.0-31.0) 02/28/17 07:51 MCHC 33.7 g/dL (33.0-37.0) 02/28/17 07:51 RDW 14.1 % (11.5-14.5) 02/28/17 07:51 Plt Count 288 K/uL (130-400) 02/28/17 07:51 MPV 8.0 fL (7.2-11.7) 02/28/17 07:51 Neut % (Auto) 63.0 % (50.0-75.0) 02/28/17 07:51 Lymph % (Auto) 27.0 % (20.0-40.0) 02/28/17 07:51 [place] % (Auto) 7.9 % (0.0-10.0) 02/28/17 07:51 Eos % (Auto) 1.5 % (0.0-4.0) 02/28/17 07:51 Baso % (Auto) 0.6 % (0.0-2.0) 02/28/17 07:51 Neut # 4.3 K/uL (1.8-7.0) 02/28/17 07:51 Lymph # 1.8 K/uL (1.0-4.3) 02/28/17 07:51 [place] # 0.5 K/uL (0.0-0.8) 02/28/17 07:51 Eos # 0.1 K/uL (0.0-0.7) 02/28/17 07:51 Baso # 0.0 K/uL (0.0-0.2) 02/28/17 07:51 PT 12.6 SECONDS (9.7-12.2) H 02/23/17 08:37 INR 1.1 02/23/17 08:37 APTT 29 SECONDS (21-34) 02/23/17 08:37 Puncture Site Rb 02/22/17 21:00 pCO2 37 mm/Hg (35-45) 02/22/17 21:00 pO2 80 mm/Hg (80-100) 02/22/17 21:00 HCO3 25.7 mmol/L (21-28) 02/22/17 21:00 ABG pH 7.44 (7.35-7.45) 02/22/17 21:00 ABG Total CO2 26.2 mmol/L (22-28) 02/22/17 21:00 ABG O2 Saturation 98.8 % (95-98) H 02/22/17 21:00 ABG Base Excess 1.1 mmol/L (-2.0-3.0) 02/22/17 21:00 ABG Hemoglobin 12.8 g/dL (11.7-17.4) 02/22/17 21:00 ABG Carboxyhemoglobin 2.0 % (0.5-1.5) H 02/22/17 21:00 POC ABG HHb (Measured) 1.2 % (0.0-5.0) 02/22/17 21:00 ABG Methemoglobin 1.2 % (0.0-3.0) 02/22/17 21:00 Anthony Test N 02/22/17 21:00 A-a O2 Difference 73.0 mm/Hg 02/22/17 21:00 Respiratory Index 0.9 02/22/17 21:00 Hgb O2 Saturation 95.6 % (95.0-98.0) 02/22/17 21:00 Liter Flow 2.0 02/22/17 21:00 FiO2 28.0 % 02/22/17 21:00 Sodium 139 mmol/L (132-148) 02/28/17 07:51 Potassium 4.0 mmol/L (3.6-5.2) 02/28/17 07:51 Chloride 98 mmol/L (98-107) 02/28/17 07:51 Carbon Dioxide 27 mmol/L (22-30) 02/28/17 07:51 Anion Gap 18 (10-20) 02/28/17 07:51 BUN 17 mg/dL (9-20) 02/28/17 07:51 Creatinine 0.6 MG/DL (0.8-1.5) L 02/28/17 07:51 Est GFR ( Amer) > 60 02/28/17 07:51 Est GFR (Non-Af Amer) > 60 02/28/17 07:51 POC Glucose (mg/dL) 84 mg/dL (65-110) 02/28/17 12:00 Random Glucose 104 mg/dL (75-110) 02/28/17 07:51 Calcium 8.8 mg/dl (8.6-10.4) 02/28/17 07:51 Phosphorus 4.3 mg/dL (2.5-4.5) 02/26/17 07:11 Magnesium 2.4 mg/dL (1.6-2.3) H 02/26/17 07:11 Total Bilirubin 0.8 mg/dL (0.2-1.3) 02/28/17 07:51 AST 24 U/L (17-59) 02/28/17 07:51 ALT 25 U/L (21-72) 02/28/17 07:51 Alkaline Phosphatase 87 U/L (38-126) 02/28/17 07:51 Troponin I < 0.0120 ng/mL (0.00-0.120) 02/23/17 08:37 Total Protein 7.6 g/dL (6.3-8.3) 02/28/17 07:51 Albumin 4.4 g/dL (3.5-5.0) 02/28/17 07:51 Globulin 3.2 gm/dL (2.2-3.9) 02/28/17 07:51 Albumin/Globulin Ratio 1.4 (1.0-2.1) 02/28/17 07:51 Urine Color Yellow (YELLOW) 02/22/17 16:54 Urine Clarity Clear (Clear) 02/22/17 16:54 Urine pH 6.0 (5.0-8.0) 02/22/17 16:54 Ur Specific [place] 1.016 (1.003-1.030) 02/22/17 16:54 Urine Protein Negative mg/dL (NEGATIVE) 02/22/17 16:54 Urine Glucose (UA) Normal mg/dL (Normal) 02/22/17 16:54 Urine Ketones Negative mg/dL (NEGATIVE) 02/22/17 16:54 Urine Blood 1+ (NEGATIVE) H 02/22/17 16:54 Urine Nitrate Negative (NEGATIVE) 02/22/17 16:54 Urine Bilirubin Negative (NEGATIVE) 02/22/17 16:54 Urine Urobilinogen Normal mg/dL (0.2-1.0) 02/22/17 16:54 Ur Leukocyte Esterase Neg Dyllan/uL (Negative) 02/22/17 16:54 Urine WBC (Auto) < 1 /hpf (0-5) 02/22/17 16:54 Urine RBC (Auto) 4 /hpf (0-3) H 02/22/17 16:54 Ur Squamous Epith Cells < 1 /hpf (0-5) 02/22/17 16:54 Urine Bacteria Rare (<OCC) 02/22/17 16:54 Stool Occult Blood Negative (NEGATIVE) 02/24/17 15:54 Stool Leukocytes, Qual Negative (NEGATIVE) 02/24/17 Unknown Salicylates < 1.0 mg/dL 1 02/22/17 17:28 Urine Opiates Screen Positive (NEGATIVE) 02/22/17 16:54 Urine Methadone Screen Positive (NEGATIVE) 02/22/17 16:54 Acetaminophen < 10.0 ug/mL (10.0-30.0) L 02/22/17 17:28 Ur Barbiturates Screen Negative (NEGATIVE) 02/22/17 16:54 Phenytoin 5.5 ug/mL (10-20) L 02/27/17 19:35 Ur Phencyclidine Scrn Negative (NEGATIVE) 02/22/17 16:54 Ur Amphetamines Screen Negative (NEGATIVE) 02/22/17 16:54 U Benzodiazepines Scrn Positive (NEGATIVE) 02/22/17 16:54 U Oth Cocaine Metabols Negative (NEGATIVE) 02/22/17 16:54 U Cannabinoids Screen Negative (NEGATIVE) 02/22/17 16:54 Alcohol, Quantitative 18 mg/dl (0-10) H 02/22/17 16:41 C. difficile Ag & Toxin Negative (NEGATIVE) 02/24/17 Unknown Attending/Attestation - Attestation I have personally seen and examined this patient.: Yes I have fully participated in the care of the patient.: Yes I have reviewed all pertinent clinical information, including history, physical exam and plan: Yes Notes (Text): Patient seen, examined, and case discussed with day-time resident. Patient seen this morning, geuninely nice male with hx of cerebral palsy, who reports he is doing better. Denies SI/Denies HI. Encouraged to eat which he demonstrated at bedside with protein supplement. Patient expresses great concern for his father who is per patient admitted to hospital for his own aliments. Per psych, patient is psychiatrically stable for discharge who spoke with patient's sister who confirmed patient is improving. Patient recommended to follow-up with his primary care doctor, Dr. Kay upon hospitalization. Patient discharged on 2 week supply of his anti-depressants, trazodone for sleep , and limited supply of phenytoin given his hx of non-compliance, prior hx of suicide attempt and the narrow therapeutic index of this medication which the patient will need to follow-up with PMD for adjustment and compliance of medication. Discussed discharge order and discharge instructions with resident. Patient's prescriptions filled and sent to patient's pharmacy and recommended follow-up with his primary care doctor, Dr. Kay. New prescriptions: Mirtazapine 15mg PO qHS Phenytoin 100mg PO Q8H Zoloft 100mg PO daily Trazodone 50mg PO qHS This is a summary of patient's hospitalization. Please see EMR for further details.
== END 2017-02-28 14:52 | disposition home or self-care (01) | DRG 92 ==
LOC: C.ER 15:29 → C.9E 18:17 → C.6T 19:03 → OBSVTOIN 02-24 09:30
PROVIDERS: ADMIT Internal Medicine; ATTEND Internal Medicine
PROC: GZ63ZZZ Other Counseling (ICD-10-PCS; principal; 2017-02-24)
PROC: GZHZZZZ Group Psychotherapy (ICD-10-PCS; 2017-02-24)
PROC: GZ56ZZZ Individual Psychotherapy, Supportive (ICD-10-PCS; 2017-02-24)
DX: G92 Toxic encephalopathy (principal); F32.2 Major depressive disorder, single episode, severe without psychotic features; T42.4X2A Poisoning by benzodiazepines, intentional self-harm, initial encounter; R07.9 Chest pain, unspecified; N18.9 Chronic kidney disease, unspecified; F11.90 Opioid use, unspecified, uncomplicated; Z72.89 Other problems related to lifestyle; G80.9 Cerebral palsy, unspecified; K21.9 Gastro-esophageal reflux disease without esophagitis; G40.909 Epilepsy, unspecified, not intractable, without status epilepticus; G47.00 Insomnia, unspecified

== ENCOUNTER 2017-08-08 20:03 | Inpatient (IN) | payer MEDICAID, MEDICARE ==
[2017-08-08 20:03] VITALS: BMI 24.1
[2017-08-08 21:37] LABS: EOS # 0.2 K/uL (0.0-0.7); HEMATOCRIT 35.5 % (35.0-51.0); LYMPH # 1.9 K/uL (1.0-4.3); LYMPH % 42.6 % (20.0-40.0); MEAN CELL VOLUME 86.7 fL (80.0-94.0); MEAN CORPUSCULAR HEMOGLOBIN 28.8 pg (27.0-31.0); MEAN CORPUSCULAR HGB CONC 33.3 g/dL (33.0-37.0); MEAN PLATELET VOLUME 6.9 fL (7.2-11.7); MONO # 0.4 K/uL (0.0-0.8); MONO % 8.2 % (0.0-10.0); RED CELL DISTRIBUTION WIDTH 13.2 % (11.5-14.5); WHITE BLOOD COUNT 4.4 K/uL (4.8-10.8)
[2017-08-08 22:05] LABS: RBC URINE 2 /hpf (0-3); URINE BILIRUBIN NEGATIVE (NEGATIVE); URINE BLOOD NEGATIVE (NEGATIVE); URINE COLOR Yellow (YELLOW); URINE GLUCOSE (UA) NORMAL (Normal); URINE KETONE NEGATIVE (NEGATIVE); URINE LEUKOCYTE ESTERASE NEG Leu/uL (Negative); URINE PROTEIN NEGATIVE (NEGATIVE); URINE UROBILINOGEN NORMAL mg/dL (0.2-1.0); WBC URINE < 1 /hpf (0-5)
[2017-08-08 22:15] LABS: CHLORIDE 102 mmol/L (98-107)
[2017-08-08 22:16] LABS: POTASSIUM 4.1 mmol/L (3.6-5.2); SODIUM 134 mmol/L (132-148)
[2017-08-08 22:18] LABS: ALB/GLOB RATIO 1.6 (1.0-2.1); AST/SGOT 18 U/L (17-59); BILIRUBIN,TOTAL 0.8 mg/dL (0.2-1.3); BLOOD UREA NITROGEN 13 mg/dL (9-20); CARBON DIOXIDE 24 mmol/L (22-30); GFR AFRICAN-AMERICAN > 60; TOTAL PROTEIN 5.8 g/dL (6.3-8.3)
[2017-08-08 22:19] LABS: ALCOHOL SERUM < 10 mg/dl (0-10); ALKALINE PHOSPHATASE 69 U/L (38-126); ALT/SGPT 30 U/L (21-72); CALCIUM 8.3 mg/dl (8.6-10.4); GLUCOSE,RANDOM 97 mg/dL (75-110)
--- NOTE | 2017-08-08 22:49 | C.PDOC ---
History Of Present Illness 57 y/o male with PMHx Cerebral palsy presents to ED requesting detox from Heroin. Patient states last time he used was last night. Patient denies sob, chest pain, fever, chills, nausea, vomiting or any other complaints at this time. Time Seen by Provider: 08/08/17 20:59 Chief Complaint (Nursing): Substance Abuse History Per: Patient History/Exam Limitations: no limitations Onset/Duration Of Symptoms: Days Current Symptoms Are (Timing): Still Present Suicide/Self Injury Attempted (Context): None Past Medical History Reviewed: Historical Data, Nursing Documentation, Vital Signs Vital Signs: Last Vital Signs Temp 97.1 F L 08/09/17 02:42 Pulse 90 08/09/17 02:42 Resp 18 08/09/17 04:33 BP 110/58 L 08/09/17 02:42 Pulse Ox 99 08/09/17 02:42 - Medical History PMH: Asthma, Bronchitis, Kidney Stones, Chronic Kidney Disease, Seizures Surgical History: Appendectomy, Tonsillectomy - [facility] Procedures COMMUNICATIVE/COGNITIVE INTEGRATION SKILLS TREATMENT (06/16/16) EXCISION OF DUODENUM, ENDO, DIAGN (12/20/16) EXCISION OF LOWER ESOPHAGUS, ENDO, DIAGN (12/20/16) EXCISION OF STOMACH, ENDO, DIAGN (12/20/16) FLUOROSCOPY OF SUPERIOR VENA CAVA, GUIDANCE (12/20/16) GAIT TRAINING/AMBULAT TREATMENT USING ASSIST EQUIPMENT (11/10/16) GROUP PSYCHOTHERAPY (02/24/17) HOME MANAGEMENT TREATMENT USING ASSIST EQUIPMENT (06/16/16) INDIV SUSTAINABILITY ANALYST FOR SUBSTANCE ABUSE TREATMENT, PSYCHOEDUCATION (05/23/17) INDIVIDUAL PSYCHOTHERAPY, SUPPORTIVE (02/24/17) INSERTION OF INFUSION DEV INTO SUP VENA CAVA, PERC APPROACH (12/20/16) LINEAR REP LID LACER (05/07/15) MANUAL THERAPY TECHNIQUES TREATMENT OF MUSCULOSK LOW BACK/LE (06/16/16) MEDS MGMT FOR SUBSTANCE ABUSE TREATMENT, CLONIDINE (05/23/17) OTHER COUNSELING (02/24/17) THERAPEUTIC EXERCISE TREATMENT OF MUSCULOSK LOW BACK/LE (06/16/16) ULTRASONOGRAPHY OF SUPERIOR VENA CAVA, GUIDANCE (12/20/16) Family History: States: No Known Family Hx - Social History Hx Alcohol Use: No Hx Substance Use: Yes - Immunization History Hx Tetanus Toxoid Vaccination: Yes (a few months ago) Review Of Systems Constitutional: Negative for: Fever, Chills Cardiovascular: Negative for: Chest Pain Respiratory: Negative for: Shortness of Breath Gastrointestinal: Negative for: Nausea, Vomiting, Diarrhea Skin: Negative for: Rash Psych: Negative for: Suicidal ideation, Withdrawal Physical Exam - Physical Exam Appears: Non-toxic, No Acute Distress Skin: Warm, Dry, No Rash Head: Atraumatic, Normacephalic Eye(s): bilateral: Normal Inspection Oral Mucosa: Moist Neck: Normal ROM, Supple Chest: Symmetrical, No Tenderness Cardiovascular: Rhythm Regular, No Friction Rub, No Murmur Respiratory: Normal Breath Sounds, No Rales, No Rhonchi, No Wheezing Gastrointestinal/Abdominal: Soft, No Tenderness, No Guarding, No Rebound Back: No CVA Tenderness, No Vertebral Tenderness Extremity: Normal ROM, Capillary Refill (<2 seconds) Neurological/Psych: Oriented x3 (Patient states he is at his basline. ) Gait: With Assistance (Cane) ED Course And Treatment - Laboratory Results Result Diagrams: 08/08/17 21:34 08/08/17 21:34 O2 Sat by Pulse Oximetry: 97 (RA) Pulse Ox Interpretation: Normal Disposition - Disposition Disposition: HOSPITALIZED Disposition Time: 02:15 Condition: GOOD - POA Present On Arrival: None - Clinical Impression Clinical Impression: Opiate dependence - PA / [employer] / Resident Statement MD/DO has reviewed & agrees with the documentation as recorded. - Scribe Statement The provider has reviewed the documentation as recorded by the Lebronibel Liu All medical record entries made by the Elia were at my direction and personally dictated by me. I have reviewed the chart and agree that the record accurately reflects my personal performance of the history, physical exam, medical decision making, and the department course for this patient. I have also personally directed, reviewed, and agree with the discharge instructions and disposition.
--- NOTE | 2017-08-09 07:07 | PCM.BM ---
<Anastasiia Francis - Last Filed: 08/09/17 07:01> Treatment Plan Problems - Problems identified on initial assessmt Opiates Abuse Date Initiated: 08/09/17 Time Initiated: 03:30 Assessment reference: NA Status: Active Treatment assets and liabiliti Patient Assests: negotiates basic needs Patient Liabilities: poor support system, relationship conflicts, substance abuse (Heroin, Methadone, ), medical problems (Cerebral Palsy), language/speech (Impaired speech), other (Wheel chair, impaired mobility. ) - Milieu Protocol Maintain good personal hygiene: daily Encourage regular showers, daily Remind patient to perform daily oral care, every shift Assist patient to perform ADL's Conduct patient checks and document Observation sheet: Q15 minutes Maintain personal safety: every shift Educate patient to report safety concerns to staff, every shift Monitor environment for contraband/sharps Medication safety: Monitor for expected outcome, potential side effects: every shift, Assess barriers to learning: every shift, Assess readiness for medication education: every shift <Natasha Acevedo - Last Filed: 08/09/17 14:33> Family Contact Family involvement: Family/SO is involved Family contact: Patient agrees to contact - Goals for Treatment Patient goals for treatment: Complete detox and discuss aftercare options. Discharge/Continuing Care - Education Needs Education Needs: Patient Medication, Patient Diagnosis/Disease Process, Patient Coping Skills, Patient Anger Management skills, Patient Placement options, Patient Community resources, Patient Activities of Daily Living, Patient Personal Hygiene/Grooming - Discharge Discharge Criteria: Ability to care for self, No longer exhibiting s/s of withdrawal, Reduction of target symptoms Discharge to:: Other - Additional Comments 08/09/17 14:35 Discharge detination TBD after discussion with pt. and family. - Treatment Team Participation Discussed with Family/SO: No Was Patient/Family/SO present at Treatment Team Meeting: Yes <Jerman Smith - Last Filed: 08/12/17 00:22> - Diagnosis (1) Opiate dependence Status: Acute Interventions: 08/12/17 00:22 * Assess 7x/week regarding severity of withdrawal * Educate regarding risks, benefits, side effects and alternatives of medications * Use Motivational Interviewing for abstinence * Use CBT for relapse prevention * Medication management for withdrawal symptoms * Encourage medication assisted treatment *
[2017-08-09] MEDS: Multiple Vitamins Tab PO SCH (09:57)
--- NOTE | 2017-08-09 14:15 | PCM.PSYCH ---
Initial Psychiatric Evaluation - Initial Psychiatric Evaluation Type of Admission: Voluntary Legal Status: Capacity Chief Complaint (in patient's own words): "I need help" History of Present Illness and Precipitating Events: The patient is seen, chart reviewed and case discussed. This is a 57-year-old male, single, with no child, unemployed, on disability, lives with his nephew. The patient is here for heroin detox. He uses 14-15 bags intranasally and he states he started back when he was in high school. This is his second detox and he was in rehabilitation one time in the past. He doesn't have long sobriety. He denies all other drug use, alcohol and cigarette use. However he takes Xanax "once a month" Past psych history: Denies Family psych history: Denies Medical history: CP since , takes medications and sees a neurologist. He is wheelchair. Current Medications: Active Medications Generic Name Dose Route Start Last Admin Trade Name Freq PRN Reason Stop Dose Admin Clonidine HCl 0.1 mg 08/09/17 01:30 Catapres PO Q8 PRN COWS Score More or Equal to 5 Dicyclomine HCl 10 mg 08/09/17 01:30 08/09/17 11:58 Bentyl PO 10 mg Q6 PRN Administration Muscle spasm Gabapentin 300 mg 08/09/17 14:00 08/09/17 13:37 Neurontin PO 300 mg QID ANDI Administration Hydroxyzine HCl 25 mg 08/09/17 01:30 Atarax PO Q6 PRN Anxiety Loperamide HCl 2 mg 08/09/17 01:30 Imodium PO Q8 PRN Diarrhea Multivitamins 1 tab 08/09/17 10:00 08/09/17 09:57 Hexavitamin PO 1 tab DAILY ANDI Administration Ondansetron HCl 4 mg 08/09/17 01:30 Zofran Tab PO Q8 PRN Nausea/Vomiting Phenytoin Sodium 100 mg 08/09/17 14:00 08/09/17 13:37 Dilantin PO 100 mg QID ANDI Administration Trazodone HCl 50 mg 08/09/17 22:00 Desyrel PO HS ANDI Past Psychiatric History - Past Psychiatric History Previous Treatment History: None Pertinent Medical Hx (Current Medical&Sleep Prob, Allergies): Allergies Allergy/AdvReac Type Severity Reaction Status Date / Time No Known Allergies Allergy Verified 02/22/17 15:46 Mirtazapine [Remeron] 15 mg PO HS #15 tab 02/28/17 Sertraline [Zoloft] 100 mg PO DAILY #15 tab 02/28/17 traZODone [Desyrel] 50 mg PO HS #15 tab 02/28/17 Phenytoin, Extended [Dilantin] 100 mg PO Q8 #60 cer 06/02/17 Review of Systems - Psychiatric Psychiatric: Abnormal Sleep Pattern, Anhedonia, Anxiety, Change in Appetite, Difficulty Concentrating. absent: Hallucinations, Homicidal Ideation, Suicidal Ideation Mental Status Examination - Personal Presentation Personal Presentation: Looks older than stated age - Affect Affect: Constricted - Motor Activity Motor Activity: Calm - Reliability in Providing Information Reliability in Providing Information: Fair - Speech Speech: Organized - Mood Mood: Depressed, Anxious - Formal Thought Process Formal Thought Process: No Impairment - Cognitive Functions Orientation: Person, Place, Situation, Time Sensorium: Drowsy Attention/Concentration: Easily distracted Abstract Thinking: [place] Estimate of Intelligence: Below average Judgement: Intact, as evidence by: Insight regarding need for hospitalization Memory: Recent intact, as evidence by: Ability to recall events of the day, Remote impaired as evidenced by: Inability to recall sig life events - Risk Risk: Seizure, Withdrawal, Diminished functioning - Strength & Assets Inventory Strength & Assets Inventory: Cooperative - Limitations Limitations: Living alone DSM 5 DX - DSM 5 DSM 5 Diagnosis: Opioid withdrawal Opioid use d/o - severe - Recommended/Plan of Treatment Treatment Recommendations and Plan of Treatment: Methadone detox As needed medications Gabapentin for augmentation Continue dilantin, check level in AM Attend groups and activities Supportive therapy and psychoeducation [place] for abstinence CBT for relapse prevention Encourage MAT Refer to rehab or IOP Attend self-help groups as well PT and swallow eval due to CP 34 min Projected ELOS: 4-5 days Prognosis: Good with treatment - Smoking Cessation Smoking Cessation Initiated: Yes
[2017-08-10] MEDS: Multiple Vitamins Tab PO SCH (09:34)
--- NOTE | 2017-08-10 14:03 | PCM.PYCHPN ---
Psychiatric Progress Note - Psychiatric Progress Note Patient seen today, length of contact: 16 min Patient Chief Complaint: "I have pain" Problems Identified/Issues Discussed: The pt is seen, chart reviewed, case discussed with staff. Support given, CBT and [place] used briefly No new symptoms reported, improving slowly and needs more time No SEs from medications, risks discussed. After care discussed Medication Change: Yes (detox changes) Medical Record Reviewed: Yes Mental Status Examination - Cognitive Function Orientation: Person, Place, Situation, Time Memory: Impaired Attention: Poor Concentration: Poor Association: Loose Fund of Knowledge: Poor - Mood Mood: Depressed, Anxious - Affect Affect: Constricted - Speech Speech: Slurred - Formal Thought Process Formal Thought Process: No Impairment - Suicidal Ideation Suicidal Ideation: No - Homicidal Ideation Homicidal Ideation: No Goal/Treatment Plan - Goal/Treatment Plan Need for Continued Stay: Discharge may exacerbated symptoms, Severe functional impairment Progress Toward Problem(s) and Goals/Treatment Plan: Methadone detox As needed medications Gabapentin for augmentation Continue dilantin, check level in AM Attend groups and activities Supportive therapy and psychoeducation [place] for abstinence CBT for relapse prevention Encourage MAT Refer to rehab or IOP Attend self-help groups as well PT and swallow eval due to CP
--- NOTE | 2017-08-10 17:05 | CARD ---
APPROVED REPORT EKG Measurement Heart [id number] <Conclusion> Sinus rhythm with occasional premature ventricular complexes Moderate voltage criteria for LVH, may be normal variant Borderline ECG
[2017-08-11] MEDS: Multiple Vitamins Tab PO SCH (09:15)
[2017-08-11] MEDS ORDERED: Ergocalciferol 50,000 Intl Units Cap PO SCH (10:00)
--- NOTE | 2017-08-11 14:02 | PCM.PYCHPN ---
Psychiatric Progress Note - Psychiatric Progress Note Patient seen today, length of contact: 18 min Patient Chief Complaint: "I'm still withdrawing" Problems Identified/Issues Discussed: The pt is seen, chart reviewed, case discussed with staff. The pt is compliant with medications and reports no side-effects. Symptoms are improving but needs more time to stabilize. Too anxious and has some breakthru sxs After care discussed, support and psychoeducation given. Medication Change: Yes (detox changes) Medical Record Reviewed: Yes Mental Status Examination - Cognitive Function Orientation: Person, Place, Situation, Time Memory: Impaired Attention: Poor Concentration: Poor Association: Loose Fund of Knowledge: Poor - Mood Mood: Depressed, Anxious - Affect Affect: Constricted - Speech Speech: Slurred - Formal Thought Process Formal Thought Process: No Impairment - Suicidal Ideation Suicidal Ideation: No - Homicidal Ideation Homicidal Ideation: No Goal/Treatment Plan - Goal/Treatment Plan Need for Continued Stay: Discharge may exacerbated symptoms, Severe functional impairment Progress Toward Problem(s) and Goals/Treatment Plan: Methadone detox adjusted daily As needed medications Gabapentin for augmentation Continue dilantin, check level in AM Attend groups and activities Supportive therapy and psychoeducation [place] for abstinence CBT for relapse prevention Encourage MAT Refer to rehab or IOP Attend self-help groups as well PT and swallow eval due to CP Estimated Date of D/C: 08/13/17
[2017-08-12] MEDS: Multiple Vitamins Tab PO SCH (09:07)
--- NOTE | 2017-08-12 13:30 | PCM.PYCHPN ---
Psychiatric Progress Note - Psychiatric Progress Note Patient seen today, length of contact: 16 min Patient Chief Complaint: "Not well" Problems Identified/Issues Discussed: The pt is seen, chart reviewed, case discussed with staff. Support given, CBT and MT used briefly No new symptoms reported, improving slowly and needs more time No SEs from medications, risks discussed. After care discussed Still claiming he has "bad" wdw sxs but tnot much visible. Got an extra dose of methadone Medication Change: Yes (detox changes) Medical Record Reviewed: Yes Mental Status Examination - Cognitive Function Orientation: Person, Place, Situation, Time Memory: Impaired Attention: Poor Concentration: Poor Association: Loose Fund of Knowledge: Poor - Mood Mood: Depressed, Anxious - Affect Affect: Constricted - Speech Speech: Slurred - Formal Thought Process Formal Thought Process: No Impairment - Suicidal Ideation Suicidal Ideation: No - Homicidal Ideation Homicidal Ideation: No Goal/Treatment Plan - Goal/Treatment Plan Need for Continued Stay: Discharge may exacerbated symptoms, Severe functional impairment Progress Toward Problem(s) and Goals/Treatment Plan: Methadone detox adjusted daily As needed medications Gabapentin for augmentation Continue dilantin, check level in AM Attend groups and activities Supportive therapy and psychoeducation [place] for abstinence CBT for relapse prevention Encourage MAT Refer to rehab or IOP Attend self-help groups as well PT and swallow eval due to CP Estimated Date of D/C: 08/13/17
[2017-08-13] MEDS: Multiple Vitamins Tab PO SCH (10:03)
--- NOTE | 2017-08-13 15:55 | PCM.PYCHPN ---
Psychiatric Progress Note - Psychiatric Progress Note Patient seen today, length of contact: 18 min Patient Chief Complaint: "I'm doing better" Problems Identified/Issues Discussed: The pt is seen, chart reviewed, case discussed with staff. The pt reported improvement in his withdrawal symptoms. Support given, CBT and [place] used briefly No new symptoms reported, improving slowly and needs more time. No SEs from medications, risks discussed. He wants to be d/c tomorrow in the morning. After care discussed DSM 5 Symptoms Update: Opioid withdrawal Opioid use d/o - severe Medication Change: Yes (detox changes) Medical Record Reviewed: Yes Mental Status Examination - Cognitive Function Orientation: Person, Place, Situation, Time Memory: Intact Attention: WNL Concentration: WNL Association: WNL Fund of Knowledge: [facility] Decription of patient's judgement and insights: fair/fair - Mood Mood: Depressed, Anxious - Affect Affect: Constricted - Speech Speech: Slurred - Formal Thought Process Formal Thought Process: No Impairment Psychotic Thoughts and Behaviors: denied - Suicidal Ideation Suicidal Ideation: No - Homicidal Ideation Homicidal Ideation: No Goal/Treatment Plan - Goal/Treatment Plan Need for Continued Stay: Discharge may exacerbated symptoms, Severe functional impairment Progress Toward Problem(s) and Goals/Treatment Plan: Methadone detox As needed medications Gabapentin for augmentation Continue dilantin, check level in AM Attend groups and activities Supportive therapy and psychoeducation [place] for abstinence CBT for relapse prevention Encourage MAT Refer to rehab or IOP Attend self-help groups as well Estimated Date of D/C: 08/13/17
[2017-08-13 17:50] VITALS: RESP 18
[2017-08-14 06:28] VITALS: BP 112/72; PULSE 94; TEMP 98.1; O2SAT 97
--- NOTE | 2017-08-14 09:21 | PCM.PYCHDC ---
Mental Status Examination - Mental Status Examination Orientation: Person, Place, Situation, Time Memory: Intact Mood: Neutral Affect: Other (euthymic) Speech: Appropriate, Soft Attention: WNL Concentration: WNL Association: WNL Fund of Knowledge: WNL Formal Thought Process: No Impairment Description of patient's judgement and insight: fair/fair Psychotic Thoughts and Behaviors: denied Suicidal Ideation: No Current Homicidal Ideation?: No Discharge Summary - Discharge Note Reason for Hospitalization: The patient is seen, chart reviewed and case discussed. This is a 57-year-old male, single, with no child, unemployed, on disability, lives with his nephew. The patient is here for heroin detox. He uses 14-15 bags intranasally and he states he started back when he was in high school. This is his second detox and he was in rehabilitation one time in the past. He doesn't have long sobriety. He denies all other drug use, alcohol and cigarette use. However he takes Xanax "once a month" Past psych history: Denies Family psych history: Denies Medical history: CP since , takes medications and sees a neurologist. He is wheelchair. Consultations:: List each consultation separately and include: 1. Reason for request. 2. Findings. 3. Follow-up Summary of Hospital Course include:: 1. Description of specific treatment plan utilized for patients during their course of treatmen. 2. Summarize the time- course for resolution of acute symptoms and/or regressed behaviors. 3. Describe issues identified and worked on during hospitalization. 4. Describe medication utilized. 5. Describe medical problems identified and treated. 6. Reassessment of suicide risk Summary of Hospital Course: The pt was admitted and started on treatment with psychotherapy, support, psychoeducation and medications. AL and CBT used. The pt attended groups and activities, as well as milieu therapy. All the risks and benefits of medications are discussed and the patient understood and agreed. The pt improved with the treatments provided. After care discussed with the patient. Time spend 28 minutes - Diagnosis (1) Drug intoxication Status: Resolved (2) Opiate dependence Status: Resolved (3) Cerebral palsy Status: Chronic Priority: Medium - Final Diagnosis (DSM 5) Condition upon Discharge: GOOD Disposition: HOME/ ROUTINE Follow-up Treatment Plan: Methadone detox As needed medications Gabapentin for augmentation Continue dilantin, check level in AM Attend groups and activities Supportive therapy and psychoeducation [place] for abstinence CBT for relapse prevention Encourage MAT Refer to rehab or IOP Attend self-help groups as well - Smoking Cessation Smoking Cessation Medication prescribed: Yes - Antipsychotic Medications Pt discharged on 2 or more routine antipsychotic medications: No
[2017-08-14] MEDS: Multiple Vitamins Tab PO SCH (09:47)
== END 2017-08-14 10:20 | disposition home or self-care (01) | DRG 895 ==
LOC: C.ER 20:03 → C.7D 08-09 02:31
PROVIDERS: ADMIT Psychiatry & Neurology Psychiatry; ATTEND Psychiatry & Neurology Psychiatry
PROC: HZ2ZZZZ Detoxification Services for Substance Abuse Treatment (ICD-10-PCS; principal; 2017-08-09)
PROC: HZ59ZZZ Individual Psychotherapy for Substance Abuse Treatment, Supportive (ICD-10-PCS; 2017-08-09)
PROC: HZ46ZZZ Group Counseling for Substance Abuse Treatment, Psychoeducation (ICD-10-PCS; 2017-08-09)
DX: F11.220 Opioid dependence with intoxication, uncomplicated (principal); F11.23 Opioid dependence with withdrawal; G80.9 Cerebral palsy, unspecified; J45.909 Unspecified asthma, uncomplicated; N18.9 Chronic kidney disease, unspecified; Z87.442 Personal history of urinary calculi; Z99.3 Dependence on wheelchair

== ENCOUNTER 2018-01-16 20:10 | Inpatient (IN) | payer MEDICAID, MEDICARE ==
[2018-01-16 20:11] VITALS: BMI 23.1
[2018-01-16 21:54] LABS: BASO % 0.6 % (0.0-2.0); EOS % 0.2 % (0.0-4.0); HEMOGLOBIN 11.2 g/dL (12.0-18.0); LYMPH # 2.1 K/uL (1.0-4.3); LYMPH % 36.8 % (20.0-40.0); MEAN CELL VOLUME 77.4 fL (80.0-94.0); MEAN CORPUSCULAR HGB CONC 32.3 g/dL (33.0-37.0); MEAN PLATELET VOLUME 7.3 fL (7.2-11.7); MONO # 0.5 K/uL (0.0-0.8); MONO % 8.5 % (0.0-10.0); NEUT # 3.1 K/uL (1.8-7.0); NEUT % 53.9 % (50.0-75.0); NRBC % 0.1 % (0.0-2.0); RBC 4.46 Mil/uL (4.40-5.90); RED CELL DISTRIBUTION WIDTH 17.1 % (11.5-14.5); WHITE BLOOD COUNT 5.8 K/uL (4.8-10.8)
[2018-01-16 22:07] LABS: ALB/GLOB RATIO 1.2 (1.0-2.1); ALT/SGPT 15 U/L (21-72); AST/SGOT 16 U/L (17-59); BLOOD UREA NITROGEN 14 mg/dL (9-20); CALCIUM 8.8 mg/dl (8.6-10.4); GFR AFRICAN-AMERICAN > 60; GFR NON-AFRICAN AMERICAN > 60
[2018-01-16 22:42] LABS: SQUAMOUS EPITHIAL < 1 /hpf (0-5); URINE BILIRUBIN NEGATIVE (NEGATIVE); URINE BLOOD NEGATIVE (NEGATIVE); URINE CLARITY Hazy (Clear); URINE COLOR Yellow (YELLOW); URINE GLUCOSE (UA) NORMAL (Normal); URINE LEUKOCYTE ESTERASE NEG Leu/uL (Negative); URINE PROTEIN 1+ mg/dL (NEGATIVE); URINE UROBILINOGEN NORMAL mg/dL (0.2-1.0)
--- NOTE | 2018-01-16 22:55 | C.PDOC ---
History Of Present Illness Pt is here requesting detox from Heroin. Time Seen by Provider: 01/16/18 20:44 Chief Complaint (Nursing): Substance Abuse History Per: Patient Onset/Duration Of Symptoms: Days Current Symptoms Are (Timing): Still Present Suicide/Self Injury Attempted (Context): None Modifying Factor(s): Narcotics Severity: Moderate Associated Symptoms: denies: Suicidal Thoughts, Suicidal Plan Additional History Per: Prior Records Past Medical History Reviewed: Historical Data, Nursing Documentation, Vital Signs Vital Signs: Last Vital Signs Temp 98.3 F 01/16/18 20:42 Pulse 94 H 01/16/18 20:42 Resp 20 01/16/18 20:42 BP 117/75 01/16/18 20:42 Pulse Ox 95 01/16/18 22:56 - Medical History PMH: Anxiety, Asthma, Bronchitis, Kidney Stones, Chronic Kidney Disease, Seizures Other PMH: Cerebral Palsy Surgical History: Appendectomy, Tonsillectomy - [facility] Procedures COMMUNICATIVE/COGNITIVE INTEGRATION SKILLS TREATMENT (06/16/16) DETOXIFICATION SERVICES FOR SUBSTANCE ABUSE TREATMENT (08/09/17) EXCISION OF DUODENUM, ENDO, DIAGN (12/20/16) EXCISION OF LOWER ESOPHAGUS, ENDO, DIAGN (12/20/16) EXCISION OF STOMACH, ENDO, DIAGN (12/20/16) FLUOROSCOPY OF SUPERIOR VENA CAVA, GUIDANCE (12/20/16) GAIT TRAINING/AMBULAT TREATMENT USING ASSIST EQUIPMENT (11/10/16) GROUP CHANNEL PROCESS SUPERVISOR FOR SUBSTANCE ABUSE TREATMENT, PSYCHOEDUCATION (08/09/17) GROUP PSYCHOTHERAPY (02/24/17) HOME MANAGEMENT TREATMENT USING ASSIST EQUIPMENT (06/16/16) INDIV CHANNEL PROCESS SUPERVISOR FOR SUBSTANCE ABUSE TREATMENT, PSYCHOEDUCATION (05/23/17) INDIV PSYCHOTHERAPY FOR SUBSTANCE ABUSE TREATMENT, SUPPORT (08/09/17) INDIVIDUAL PSYCHOTHERAPY, SUPPORTIVE (02/24/17) INSERTION OF INFUSION DEV INTO SUP VENA CAVA, PERC APPROACH (12/20/16) LINEAR REP LID LACER (05/07/15) MANUAL THERAPY TECHNIQUES TREATMENT OF MUSCULOSK LOW BACK/LE (06/16/16) MEDS MGMT FOR SUBSTANCE ABUSE TREATMENT, CLONIDINE (05/23/17) OTHER COUNSELING (02/24/17) THERAPEUTIC EXERCISE TREATMENT OF MUSCULOSK LOW BACK/LE (06/16/16) ULTRASONOGRAPHY OF SUPERIOR VENA CAVA, GUIDANCE (12/20/16) Family History: States: Unknown Family Hx - Social History Hx Alcohol Use: No Hx Substance Use: Yes (Snorts Heroin) - Immunization History Hx Tetanus Toxoid Vaccination: Yes (a few months ago) Hx Influenza Vaccination: No Hx Pneumococcal Vaccination: No Review Of Systems Except As Marked, All Systems Reviewed And Found Negative. Constitutional: Negative for: Fever Cardiovascular: Negative for: Chest Pain Respiratory: Negative for: Shortness of Breath Gastrointestinal: Negative for: Vomiting, Abdominal Pain Musculoskeletal: Negative for: Neck Pain Skin: Negative for: Rash Neurological: Negative for: Weakness, Numbness Physical Exam - Physical Exam Appears: Non-toxic, No Acute Distress Skin: Normal Color, Warm, Dry Head: Atraumatic Eye(s): bilateral: PERRL, EOMI Neck: Normal ROM, Supple Cardiovascular: Rhythm Regular Respiratory: Normal Breath Sounds, No Accessory Muscle Use Gastrointestinal/Abdominal: Soft, No Tenderness Neurological/Psych: Oriented x3, Normal Motor, Normal Sensation ED Course And Treatment - Laboratory Results Result Diagrams: 01/16/18 21:51 01/16/18 21:51 Lab Interpretation: No Acute Changes Interpretation Of Abnormal: Dilantin subtherapeutic O2 Sat by Pulse Oximetry: 95 Pulse Ox Interpretation: Normal Progress Note: Pt is medically stable for detox admission. Disposition Counseled Patient/Family Regarding: Studies Performed, Diagnosis - Disposition Disposition: HOSPITALIZED Disposition Time: 23:27 Condition: STABLE - Clinical Impression Clinical Impression: Opioid dependence Decision To Admit - Pt Status Changed To: Hospital Disposition Of: Inpatient - Admit Certification Admit to Inpatient:: After my assessment, the patient will require hospitalization for at least two midnights. This is because of the severity of symptoms shown, intensity of services needed, and/or the medical risk in this patient being treated as an outpatient. - InPatient: Physician Admission Certification: I certify that this patient requires 2 or more midnights of care for the following reason:: Detox. - . Bed Request Type: Detox Admitting Physician: Carl Hooper Patient Diagnosis: Opioid dependence
[2018-01-16 23:03] LABS: BARBITURATES, UR NEGATIVE (NEGATIVE); BENZODIAZEPINES, UR NEGATIVE (NEGATIVE); PHENCYCLIDINE, UR NEGATIVE (NEGATIVE)
[2018-01-16 23:04] LABS: OPIATES, UR POSITIVE (NEGATIVE)
--- NOTE | 2018-01-17 01:29 | PCM.BM ---
<Kayla Hudson - Last Filed: 01/17/18 01:27> Treatment Plan Problems - Problems identified on initial assessmt Opiate Dependence Date Initiated: 01/17/18 Time Initiated: 01:28 Assessment reference: NA Status: Active Treatment assets and liabiliti Patient Assests: cooperative, motivated, negotiates basic needs Patient Liabilities: poor support system, substance abuse, medical problems - Milieu Protocol Maintain good personal hygiene: daily Encourage regular showers, daily Remind patient to perform daily oral care, daily Assist patient to perform ADL's Maintain personal safety: every shift Educate patient to report safety concerns to staff, every shift Monitor environment for contraband/sharps Medication safety: Monitor for expected outcome, potential side effects: every shift, Assess barriers to learning: every shift, Assess readiness for medication education: every shift <Jerman Smith - Last Filed: 01/17/18 13:28> - Diagnosis (1) Opiate dependence Status: Acute Interventions: 01/17/18 13:28 * Assess 7x/week regarding severity of withdrawal * Educate regarding risks, benefits, side effects and alternatives of medications * Use Motivational Interviewing for abstinence * Use CBT for relapse prevention * Medication management for withdrawal symptoms * Encourage medication assisted treatment * <Natasha Acevedo - Last Filed: 01/18/18 14:05> Family Contact Family involvement: Famliy/SO not involved - Goals for Treatment Patient goals for treatment: Complete detox and transition to MMT. Discharge/Continuing Care - Education Needs Education Needs: Family Medication, Family Diagnosis/Disease Process, Family Community resources, Patient Medication, Patient Diagnosis/Disease Process, Patient Coping Skills, Patient Anger Management skills, Patient Placement options, Patient Community resources - Discharge Discharge Criteria: Ability to care for self, No longer exhibiting s/s of withdrawal, Reduction of target symptoms Discharge to:: Home, With Family - Treatment Team Participation Patient/Family/SO Statement: 01/18/18 14:05 "I need to go to a methadone program from here..." Discussed with Family/SO: No Was Patient/Family/SO present at Treatment Team Meeting: Yes
[2018-01-17] MEDS ORDERED: Aluminum Hydroxide/Magnesium Hydroxide Susp (30 mL) PO PRN (10:00)
[2018-01-17] MEDS: Phenytoin 100 mg/4 ml Oral Susp UD PO SCH ×3 (10:40→17:06)
--- NOTE | 2018-01-17 13:28 | PCM.PSYCH ---
Initial Psychiatric Evaluation - Initial Psychiatric Evaluation Type of Admission: Voluntary Legal Status: Capacity Chief Complaint (in patient's own words): "I need help" History of Present Illness and Precipitating Events: The patient is seen, chart reviewed and case discussed. he is known from a Jul 2017 admission. This is a 57-year-old male, single, with no child, unemployed, on disability, lives with his nephew (pt's apartment). The patient is here for heroin detox again. He uses average 5-10 bags intranasally and he states he started back when he was in high school. This is his third detox and he was in rehabilitation one time in the past. He doesn't have long sobriety. He denies all other drug use, alcohol and cigarette use. However he takes Xanax occasionally and he was given some in [facility] this week. Interestingly, he was just discharged from [place] yesterday and he admits to using IN the hospital "my friend was bringing everyday, that's why they kicked me out" (there is no d/c note yet to collaborate that). He continued outside and took "a little" methadone too," and came to our ED for help. He wants to go to a [facility] but reportedly they rejected him while he was in [facility] - where he had been admitted after he fell twice at home. Past psych history: Denies but has had and sill is somewhat depressed Family psych history: Denies Medical history: CP since , takes medications and sees a neurologist. He is in wheelchair. Current Medications: Active Medications Generic Name Dose Route Start Last Admin Trade Name Freq PRN Reason Stop Dose Admin Al Hydrox/Mg Hydrox/Simethicone 30 ml 01/17/18 10:00 Maalox 30 Ml PO TID PRN Indigestion / Heartburn Clonidine HCl 0.1 mg 01/17/18 00:27 01/17/18 06:47 Catapres PO 0.1 mg Q6 PRN Administration withdrawal symptoms Hydroxyzine HCl 50 mg 01/17/18 00:26 01/17/18 00:59 Atarax PO 50 mg Q6 PRN Administration anxiety Ibuprofen 600 mg 01/17/18 00:29 Motrin Tab PO Q6 PRN Pain, moderate (4-7) Loperamide HCl 2 mg 01/17/18 10:00 Imodium PO Q8 PRN Diarrhea Methadone HCl 10 mg 01/17/18 14:00 Methadone PO 01/17/18 14:01 ONCE ONE Ondansetron HCl 4 mg 01/17/18 10:00 Zofran Tab PO Q8 PRN Nausea/Vomiting Phenytoin 100 mg 01/17/18 10:00 01/17/18 10:40 Dilantin PO 100 mg TID ANDI Administration Trazodone HCl 100 mg 01/17/18 13:27 Desyrel PO HS PRN insomnia Past Psychiatric History - Past Psychiatric History Previous Treatment History: None Pertinent Medical Hx (Current Medical&Sleep Prob, Allergies): Allergies Allergy/AdvReac Type Severity Reaction Status Date / Time Hay Fever Allergy CONGESTION Uncoded 01/16/18 20:45 Phenytoin, Extended [Dilantin] 100 mg PO Q6 01/11/18 ALPRAZolam [Xanax] 0.25 mg PO BID 01/16/18 Review of Systems - Neurological Neurological: Abnormal Movements, Dizziness, Focal Weakness, Frequent Falls, Lack of Coordination, Weakness - Psychiatric Psychiatric: Abnormal Sleep Pattern, Anxiety, Change in Appetite, Difficulty Concentrating. absent: Hallucinations, Homicidal Ideation, Suicidal Ideation Mental Status Examination - Personal Presentation Personal Presentation: Looks older than stated age - Affect Affect: Constricted - Motor Activity Motor Activity: Other (fidgety) - Reliability in Providing Information Reliability in Providing Information: Fair - Speech Speech: Organized - Mood Mood: Depressed, Anxious - Formal Thought Process Formal Thought Process: No Impairment - Cognitive Functions Orientation: Person, Place, Situation, Time Sensorium: Alert Attention/Concentration: Easily distracted Abstract Thinking: [place] Estimate of Intelligence: Below average Judgement: Imparied, as evidence by: Poor judgement (not following up at all, using while in the hospital), Intact, as evidence by: Insight regarding need for hospitalization Memory: Recent intact, as evidence by: Ability to recall events of the day, Remote impaired as evidenced by: Inability to recall sig life events - Risk Risk: Diminished functioning - Strength & Assets Inventory Strength & Assets Inventory: Cooperative - Limitations Limitations: Other DSM 5 DX - DSM 5 DSM 5 Diagnosis: Opioid withdrawal Opioid use d/o- severe CP Depressive d/o- unspecified - Recommended/Plan of Treatment Treatment Recommendations and Plan of Treatment: Taper with methadone - low dose (positive for methadone and questionable use) As needed medications All risks, benefits and alternatives of the meds discussed, and the pt agreed and understood. Attend groups and activities Supportive therapy and psychoeducation IN for abstinence CBT for relapse prevention Encourage MAT Refer to rehab or IOP, and self-help groups Smoking cessation with IN Nicotine patch if needed 34 min
[2018-01-18] MEDS: Phenytoin 100 mg/4 ml Oral Susp UD PO SCH ×3 (09:08→17:06)
--- NOTE | 2018-01-18 11:34 | PCM.PYCHPN ---
Psychiatric Progress Note - Psychiatric Progress Note Patient seen today, length of contact: 15 min Patient Chief Complaint: "I am not feeling well, I did not sleep well last night" Problems Identified/Issues Discussed: The pt is seen, chart reviewed, case discussed with staff. The pt is compliant with medications and reports no side-effects. Symptoms are improving but needs more time to stabilize. After care discussed, support and psychoeducation given. Patient complains of pain often Medication Change: Yes (Detox changes daily, add seroquel - low dose) Medical Record Reviewed: Yes Mental Status Examination - Cognitive Function Orientation: Person, Place, Situation, Time Attention: WNL Concentration: WNL - Mood Mood: Depressed, Anxious - Affect Affect: Constricted - Formal Thought Process Formal Thought Process: No Impairment - Homicidal Ideation Homicidal Ideation: No Goal/Treatment Plan - Goal/Treatment Plan Need for Continued Stay: Discharge may exacerbated symptoms, Severe functional impairment Progress Toward Problem(s) and Goals/Treatment Plan: Taper with methadone - low dose (positive for methadone and questionable use) As needed medications All risks, benefits and alternatives of the meds discussed, and the pt agreed and understood. Attend groups and activities Supportive therapy and psychoeducation [place] for abstinence CBT for relapse prevention Encourage MAT Refer to rehab or IOP, and self-help groups Smoking cessation with [place] Nicotine patch if needed
[2018-01-19] MEDS: Phenytoin 100 mg/4 ml Oral Susp UD PO SCH ×3 (09:07→17:10)
--- NOTE | 2018-01-19 14:34 | PCM.PYCHPN ---
Psychiatric Progress Note - Psychiatric Progress Note Patient seen today, length of contact: 16 min Patient Chief Complaint: "I am feeling a little better" Problems Identified/Issues Discussed: The pt is seen, chart reviewed, case discussed with staff. Support given, CBT and NV used briefly No new symptoms reported, improving slowly and needs more time No SEs from medications, risks discussed. After care discussed Patient complained that the medication isn't helping as much as he wish it would , patient also complained of diarrhea Patient worried he will relapse when he returns home Medication Change: Yes (Detox changes daily, add seroquel - low dose) Medical Record Reviewed: Yes Mental Status Examination - Cognitive Function Orientation: Person, Place, Situation, Time Attention: WNL Concentration: WNL - Mood Mood: Depressed, Anxious - Affect Affect: Constricted - Formal Thought Process Formal Thought Process: No Impairment - Homicidal Ideation Homicidal Ideation: No Goal/Treatment Plan - Goal/Treatment Plan Need for Continued Stay: Discharge may exacerbated symptoms, Severe functional impairment Progress Toward Problem(s) and Goals/Treatment Plan: Taper with methadone - low dose (positive for methadone and questionable use) As needed medications All risks, benefits and alternatives of the meds discussed, and the pt agreed and understood. Attend groups and activities Supportive therapy and psychoeducation [place] for abstinence CBT for relapse prevention Encourage MAT Refer to rehab or IOP, and self-help groups Smoking cessation with [place] Nicotine patch if needed
--- NOTE | 2018-01-20 08:48 | PCM.PYCHDC ---
Mental Status Examination - Mental Status Examination Orientation: Person, Place, Situation, Time Memory: Intact Mood: Neutral Affect: Constricted Attention: WNL Concentration: WNL Association: WNL Fund of Knowledge: WNL Formal Thought Process: No Impairment Suicidal Ideation: No Current Homicidal Ideation?: No Discharge Summary - Discharge Note Reason for Hospitalization: Opioid detox Consultations:: List each consultation separately and include: 1. Reason for request. 2. Findings. 3. Follow-up Summary of Hospital Course include:: 1. Description of specific treatment plan utilized for patients during their course of treatmen. 2. Summarize the time- course for resolution of acute symptoms and/or regressed behaviors. 3. Describe issues identified and worked on during hospitalization. 4. Describe medication utilized. 5. Describe medical problems identified and treated. 6. Reassessment of suicide risk Summary of Hospital Course: On Admission: He is known from a Jul 2017 admission. This is a 57-year-old male, single, with no child, unemployed, on disability, lives with his nephew (pt's apartment). The patient is here for heroin detox again. He uses average 5-10 bags intranasally and he states he started back when he was in high school. This is his third detox and he was in rehabilitation one time in the past. He doesn't have long sobriety. He denies all other drug use, alcohol and cigarette use. However he takes Xanax occasionally and he was given some in [facility] this week. Interestingly, he was just discharged from [place] yesterday and he admits to using IN the hospital "my friend was bringing everyday, that's why they kicked me out" (there is no d/c note yet to collaborate that). He continued outside and took "a little" methadone too," and came to our ED for help. He wants to go to a [facility] but reportedly they rejected him while he was in [facility] - where he had been admitted after he fell twice at home. Past psych history: Denies but has had and sill is somewhat depressed Family psych history: Denies Medical history: CP since , takes medications and sees a neurologist. He is in wheelchair. Hospital course: The pt was admitted and started on treatment with psychotherapy, support, psychoeducation and medications. [place] and CBT used. The pt attended groups and activities, as well as milieu therapy. All the risks and benefits of medications are discussed and the patient understood and agreed. The pt improved with the treatments provided. After care discussed with the patient. He will go to [facility] for methadone maintenance. - Final Diagnosis (DSM 5) Condition upon Discharge: IMPROVED DSM 5: Opioid withdrawal Opioid use d/o- severe CP Depressive d/o- unspecified Disposition: HOME/ ROUTINE Follow-up Treatment Plan: Continue below medications after discharge. Follow after care plan as discussed. Use relapse prevention skills Return to ER or call 911 if suicidal, homicidal or symptoms relapse. Stay away from stress, alcohol and drugs. See primary doctor regularly and get labs. Prescriptions/Medication Reconciliation: Phenytoin [Dilantin] 100 mg PO TID #90 udc QUEtiapine [SEROquel] 50 mg PO HS #30 tab traZODone [Desyrel] 100 mg PO HS PRN #30 tab PRN Reason: insomnia - Smoking Cessation Smoking Cessation Medication prescribed: No
[2018-01-20] MEDS: Phenytoin 100 mg/4 ml Oral Susp UD PO SCH (09:08)
--- NOTE | 2018-01-20 10:32 | PCM.SURG1 ---
Surgeon's Initial Post Op Note - Surgeon's Notes Surgeon: Andrea Burciaga MD Configuration Management Consultant: NONE Type of Anesthesia: Local Pre-Operative Diagnosis: Poor venous access Operative Findings: US showed a patent right basilic vein Post-Operative Diagnosis: Poor venous access Operation Performed: Single lumen picc placement right basilic vein, 33 cm. Specimen/Specimens Removed: none Estimated Blood Loss: EBL {In ML}: 2 Blood Products Given: N/A Drains Used: No Drains Post-Op Condition: Fair Date of Surgery/Procedure: 01/11/18 Time of Surgery/Procedure: 16:00
[2018-01-20 10:38] VITALS: BP 146/97; PULSE 97; RESP 20; TEMP 97.8; O2SAT 98
== END 2018-01-20 10:30 | disposition home or self-care (01) | DRG 895 ==
LOC: C.ER 20:10 → C.7D 23:29
PROC: HZ2ZZZZ Detoxification Services for Substance Abuse Treatment (ICD-10-PCS; principal; 2018-01-16)
PROC: HZ59ZZZ Individual Psychotherapy for Substance Abuse Treatment, Supportive (ICD-10-PCS; 2018-01-16)
PROC: HZ56ZZZ Individual Psychotherapy for Substance Abuse Treatment, Psychoeducation (ICD-10-PCS; 2018-01-16)
PROC: HZ42ZZZ Group Counseling for Substance Abuse Treatment, Cognitive-Behavioral (ICD-10-PCS; 2018-01-16)
PROC: HZ46ZZZ Group Counseling for Substance Abuse Treatment, Psychoeducation (ICD-10-PCS; 2018-01-16)
PROC: GZHZZZZ Group Psychotherapy (ICD-10-PCS; 2018-01-16)
PROC: GZ58ZZZ Individual Psychotherapy, Cognitive-Behavioral (ICD-10-PCS; 2018-01-16)
PROC: GZ56ZZZ Individual Psychotherapy, Supportive (ICD-10-PCS; 2018-01-16)
PROC: HZ52ZZZ Individual Psychotherapy for Substance Abuse Treatment, Cognitive-Behavioral (ICD-10-PCS; 2018-01-16)
PROC: 05HY33Z Insertion of Infusion Device into Upper Vein, Percutaneous Approach (ICD-10-PCS; 2018-01-20)
DX: F11.23 Opioid dependence with withdrawal (principal); F32.9 Major depressive disorder, single episode, unspecified